=== PATIENT | female | born 1955 | race Caucasian/White ===

== ENCOUNTER 2020-03-03 20:03 | Inpatient (IN) | payer OTHER, SELFPAY ==
[2020-03-03 20:25] VITALS: BP 137/77; PULSE 130; RESP 18; TEMP 37; O2SAT 95; BMI 29.2
--- NOTE | 2020-03-03 20:55 | ECG_ITS ---
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 Measurements Intervals [place] Rate: 143 P: NM: -1 QRS: -13 QRSD: 90 T: 124 QT: 229 QTc: 354 Interpretive Statements ATRIAL FLUTTER/TACHYCARDIA WITH RAPID VENTRICULAR RESPONSE ST DEPRESSION Compared to ECG 10/28/2014 05:28:06 ST (T wave) deviation now present Sinus rhythm no longer present Atrial premature complex(es) no longer present Electronically Signed On 03-04-2020 19:30:02 CDT by Dru James M.D. [id number] jose l
[2020-03-03 21:18] LABS: Basophils # 0.1 10^3/uL (0.0-0.1); Basophils % 0.8 %; Eosinophils # 0.2 10^3/uL (0.0-0.8); Eosinophils % 2.8 %; Hematocrit 42.7 % (37.0-47.0); Hemoglobin 14.6 g/dL (11.5-15.3); Lymphocytes # 3.4 10^3/uL (0.8-4.8); Lymphocytes % 39.5 %; Mean Corpuscular HGB Conc 34.2 g/dL (30.0-36.0); Mean Corpuscular Hemoglobin 30.7 pg (28.0-34.0); Mean Corpuscular Volume 89.9 fL (81-99); Mean Platelet Volume 9.9 fL (7.4-10.4); Monocytes # 0.9 10^3/uL (0.2-0.9); Monocytes % 10.1 %; Neutrophils % 46.6 %; Nucleated Red Blood Cells % 0 %; Platelet Count 269 10^3/cmm (130-400); Red Blood Count 4.75 10^6/uL (4.1-5.3); Red Cell Distribution Width 12.9 % (12.1-15.1); White Blood Count 8.6 10^3/uL (4.0-10.0)
[2020-03-03 21:21] VITALS: BP 124/71; PULSE 116; RESP 18; O2SAT 96
[2020-03-03 21:32] LABS: INR 0.83 (0.8-1.2)
[2020-03-03 21:49] LABS: Troponin(5th) Baseline 8 ng/L (0-10)
[2020-03-03 21:54] LABS: Alanine Aminotransferase 24 U/L (0-33); Albumin Level 4.5 g/dL (3.5-5.2); Alkaline Phosphatase 70 IU/L (35-105); Anion Gap 12.5 (5-19); Aspartate Amino Transferase 22 U/L (0-32); Blood Urea Nitrogen 20 mg/dL (8-23); Calcium 9.8 mg/dL (8.5-10.5); Carbon Dioxide 29 mmol/L (22-29); Chloride 102 mmol/L (98-107); Creatinine Clr Calc Pharmacy 62.0294; Free T4 Free Thyroxine 1.14 ng/dL (0.82-1.77); Globulin 2.1 g/dL (1.3-4.6); Glomerular Filtration Rate 71.8 mL/min (90-130); Glucose 139 mg/dL (65-115); Magnesium 2.3 mg/dL (1.7-2.3); Osmolality Calculated 289 mOsm/kg (285-295); Potassium 3.5 mmol/L (3.5-5.1); Sodium 140 mmol/L (136-145); Thyroid Stimulating Hormone 2.91 uIU/mL (0.27-4.20); Total Bilirubin 0.2 mg/dL (0.15-1.2); Total Protein 6.6 g/dL (6.6-8.7)
[2020-03-03 22:03] VITALS: BP 127/69; PULSE 90; RESP 16; O2SAT 97
--- NOTE | 2020-03-03 22:21 | W.ED.ARRPALP ---
HPI - Arrhythmia/Palpitations General: Chief Complaint: Arrhythmia/Palpitations Stated Complaint: thinks in a fib Time Seen by Provider: 03/03/20 21:12 Source: patient and family Mode of arrival: ambulatory Limitations: no limitations History of Present Illness: HPI narrative: Ms. Bonds is a nice 64-year-old female who comes in complaining of palpitations that started at 5 PM this evening. She has a history of atrial fibrillation but had an ablation in 2014 and has not had problems except for very short runs of palpitations since that time. Patient denies any chest pain but may get a little short of breath when she exerts herself. The reason she comes in tonight or this episode of some palpitations is longer than it is ever been. Patient is unaware of anything makes her symptoms better or worse. She is not on any anticoagulants currently. She otherwise denies any complaints or concerns. Associated symptoms: Deny diaphoresis, nausea, pre-syncope, syncope or vomiting Review of Systems Const: Denies: fever(s), chills, body aches, fatigue, malaise or diaphoresis Eyes: Denies: change in vision, blurry vision, photophobia, eye discomfort, eye discharge or eye redness ENMT: Denies: throat pain, odynophagia, hoarseness, swelling of lips/tongue, ear or mastoid pain, ear discharge, change in hearing or nasal discharge Card: Reports: palpitations; Denies: chest pain, irregular heart rhythm, edema, lightheadedness, syncope, pre-syncope, dyspnea on exertion or orthopnea Resp: Denies: dyspnea, productive cough, non-productive cough, wheezing, hemoptysis or chest congestion GI: Denies: abdominal pain, nausea, vomiting, hematemesis, coffee ground emesis, heartburn, diarrhea, constipation, GI cramping, hematochezia or melena : Denies: flank pain, dysuria, urinary frequency, urinary urgency or hematuria Musc: Denies: neck pain, back pain, extremity pain, extremity swelling, joint pain, joint swelling, joint redness, joint warmth or joint stiffness Skin/Breast: Denies: rash, pruritus, erythema or skin tenderness Neuro: Denies: headache(s), numbness in extremities, weakness in extremities, sensory changes, lack of coordination, difficulty walking, dizziness, vertigo, confusion, Slurred speech present or seizure-like activity Deion/Lymph: Denies: easy bruising, easy bleeding, petechiae, purpura or enlarged lymph nodes All/Imm: Denies: urticaria, throat swelling, tongue swelling, facial swelling or acute wheezing PFSH ED PFSH: Medical History Atrial fibrillation Diverticulitis Dyslipidemia Dysphagia GERD (gastroesophageal reflux disease) Hemorrhoids HTN (hypertension) Surgical History History of salpingo-oophorectomy S/P hysterectomy Status post catheter ablation of atrial fibrillation 2014 Family History Father CAD (coronary artery disease) S/P CABG (coronary artery bypass graft) Sister Cancer Other Diabetes Stroke Social History (Updated 03/03/20 @ 23:46 by Dyan Marie MD) Smoking and tobacco status: former smoker Alcohol intake: current Alcohol intake frequency: holidays/special occasions only Alcohol type: wine Household members: spouse Marital status: Physical Exam Const: COMMON NORMALS: no acute distress, patient oriented x3, no limitations, healthy appearing and well nourished GENERAL APPEARANCE: cooperative, well kempt and well developed HENMT: COMMON NORMALS: normocephalic, atraumatic, external ears normal, EAC's normal and Normal external nose present HEAD & SCALP: normal to inspection, normocephalic and atraumatic FACE & SINUS: normal facial exam and face symmetric NOSE: Normal external nose present and Normal nares present EXTERNAL EAR: Yes external ears normal EXTERNAL AUDITORY CANAL: EAC's normal MOUTH: Normal oral and palatal mucosa present, lip normal and tongue normal Eye: COMMON NORMALS: Equal, round and reactive pupils present and conjunctivae normal GENERAL EYE: appearance normal, both eyes and all related structures ALIGNMENT: Yes alignment normal PERIORBITAL: periorbital findings normal EYELID: eyelids normal CONJUNCTIVA: Yes conjunctivae normal SCLERA: sclerae normal PUPIL: Yes Equal, round and reactive pupils present Neck/C-Spine: COMMON NORMALS: full ROM, no lymphadenopathy, supple, no meningeal signs and no JVD GENERAL: Yes normal visual inspection and Yes trachea midline Chest: COMMONS NORMALS: normal inspection of the chest and normal palpation of entire chest wall Resp: COMMON NORMALS: normal respiratory effort, No retractions, No use of accessory muscles and clear to auscultation bilaterally EFFORT & INSPECTION: Yes able to speak in complete sentences and Yes symmetric chest movement AUSCULTATION: clear to auscultation bilaterally, no crackles, no rales, no rhonchi and no wheezes Cardio: COMMON NORMALS: no JVD, S1 normal heart sound present and S2 normal heart sound present RATE: tachycardic RHYTHM: abnormal rhythm irregularly irregular HEART SOUNDS: S1 normal heart sound present, S2 normal heart sound present, no click, no gallops, no murmurs, no rubs and abnormal split S2 GI: COMMON NORMALS: Soft to palpation and No hepatosplenomegaly present PALPATION: Yes Soft to palpation, No Tenderness to palpation present (GI), No Guarding due to palpation present (GI), No Rigid due to palpation, Yes No hepatosplenomegaly present, No Hernia present, No Palpable mass present and No Pulsatile mass present : COMMON NORMALS: Yes no CVA tenderness BLADDER/KIDNEY EXAM: Yes no CVA tenderness EXTERNAL FEMALE EXAM: No Hernia present Back/Pelvis: COMMON NORMALS: no CVA tenderness, thoracic and lumbar spine normal to inspection, no thoracic nor lumbar tenderness and thoraco-lumbar ROM normal Extremity: COMMON NORMALS: normal to inspection, full ROM, capillary refill normal, no joint enlargement, no clubbing, cyanosis or edema and no calf tenderness Neuro: COMMON NORMALS: patient oriented x3, CN's II-XII intact bilaterally, moves all extremities, no focal motor deficits and no sensory deficits noted MENINGEAL SIGNS: Yes no meningeal signs SPEECH: speech normal Psych: COMMON NORMALS: mental status grossly normal, Normal thought process present, cooperative, normal affect, speech normal and activity/motor behavior normal APPEARANCE: Yes well kempt SPEECH: Yes normal speech THOUGHT PROCESS: Normal thought process present Skin: COMMON NORMALS: no rashes or lesions noted, turgor normal, no jaundice, no petechiae and no mottling GENERAL SKIN EXAM: no rashes or lesions noted and turgor normal Course Vital Signs: Vital signs: Vital Signs Temperature 98.3 F 03/04/20 11:00 Pulse Rate 69 03/04/20 11:00 Respiratory Rate 15 03/04/20 11:00 Blood Pressure 131/70 03/04/20 11:00 Pulse Oximetry 96 03/04/20 11:00 MDM - Arrhythmia/Palpitations MDM Narrative: Medical decision making narrative: Patient's rate is been controlled on Cardizem. I have endorsed the case to Dr. Marie, he agrees to admit. Patient's cardiac enzymes are unremarkable and electrolytes are normal. Further work-up I believe can be performed by the hospitalist service and cardiology. They may want to consider cardioversion if the patient does not spontaneously cardiovert. Lab Data: Attestation: I reviewed the patient's lab results. Labs: Lab Results 03/03/20 03/03/20 03/03/20 Range/Units 21:08 21:08 21:08 WBC 8.6 (4.0-10.0) 10^3/ uL RBC 4.75 (4.1-5.3) 10^6/u L Hgb 14.6 (11.5-15.3) g/dL Hct 42.7 (37.0-47.0) % MCV 89.9 (81-99) fL MCH 30.7 (28.0-34.0) pg MCHC 34.2 (30.0-36.0) g/dL RDW 12.9 (12.1-15.1) % Plt Count 269 (130-400) 10^3/c mm MPV 9.9 (7.4-10.4) fL Neut % (Auto) 46.6 % Lymph % (Auto) 39.5 % [place] % (Auto) 10.1 % Eos % (Auto) 2.8 % Baso % (Auto) 0.8 % Neut # (Auto) 4.00 (1.8-7.7) 10^3/u L Lymph # (Auto) 3.4 (0.8-4.8) 10^3/u L [place] # (Auto) 0.9 (0.2-0.9) 10^3/u L Eos # (Auto) 0.2 (0.0-0.8) 10^3/u L Baso # (Auto) 0.1 (0.0-0.1) 10^3/u L Nucleated RBC % (a uto) 0 % Nucleated RBCs # 0.0 /100WBC PT (12.1-14.9) SECO NDS INR (0.8-1.2) D-Dimer (0-0.59) ug/mIFE U Sodium 140 (136-145) mmol/L Potassium 3.5 (3.5-5.1) mmol/L Chloride 102 (98-107) mmol/L Carbon Dioxide 29 (22-29) mmol/L Anion Gap 12.5 (5-19) BUN 20 (8-23) mg/dL Creatinine 0.8 (0.5-0.9) mg/dL GFR Calculation 71.8 L (90-130) mL/min Glucose 139 H (65-115) mg/dL Calculated Osmolal ity 289 (285-295) mOsm/k g Calcium 9.8 (8.5-10.5) mg/dL Magnesium 2.3 (1.7-2.3) mg/dL Total Bilirubin 0.2 (0.15-1.2) mg/dL AST 22 (0-32) U/L ALT 24 (0-33) U/L Alkaline Phosphata se 70 (35-105) IU/L Troponin T Baselin e 8 (0-10) ng/L Total Protein 6.6 (6.6-8.7) g/dL Albumin 4.5 (3.5-5.2) g/dL Globulin 2.1 (1.3-4.6) g/dL TSH 2.91 (0.27-4.20) uIU/ mL Free T4 1.14 (0.82-1.77) ng/d L 03/03/20 03/03/20 Range/Units 21:08 21:08 WBC (4.0-10.0) 10^3/ uL RBC (4.1-5.3) 10^6/u L Hgb (11.5-15.3) g/dL Hct (37.0-47.0) % MCV (81-99) fL MCH (28.0-34.0) pg MCHC (30.0-36.0) g/dL RDW (12.1-15.1) % Plt Count (130-400) 10^3/c mm MPV (7.4-10.4) fL Neut % (Auto) % Lymph % (Auto) % [place] % (Auto) % Eos % (Auto) % Baso % (Auto) % Neut # (Auto) (1.8-7.7) 10^3/u L Lymph # (Auto) (0.8-4.8) 10^3/u L [place] # (Auto) (0.2-0.9) 10^3/u L Eos # (Auto) (0.0-0.8) 10^3/u L Baso # (Auto) (0.0-0.1) 10^3/u L Nucleated RBC % (a uto) % Nucleated RBCs # /100WBC PT 11.70 L (12.1-14.9) SECO NDS INR 0.83 (0.8-1.2) D-Dimer 0.55 (0-0.59) ug/mIFE U Sodium (136-145) mmol/L Potassium (3.5-5.1) mmol/L Chloride (98-107) mmol/L Carbon Dioxide (22-29) mmol/L Anion Gap (5-19) BUN (8-23) mg/dL Creatinine (0.5-0.9) mg/dL GFR Calculation (90-130) mL/min Glucose (65-115) mg/dL Calculated Osmolal ity (285-295) mOsm/k g Calcium (8.5-10.5) mg/dL Magnesium (1.7-2.3) mg/dL Total Bilirubin (0.15-1.2) mg/dL AST (0-32) U/L ALT (0-33) U/L Alkaline Phosphata se (35-105) IU/L Troponin T Baselin e (0-10) ng/L Total Protein (6.6-8.7) g/dL Albumin (3.5-5.2) g/dL Globulin (1.3-4.6) g/dL TSH (0.27-4.20) uIU/ mL Free T4 (0.82-1.77) ng/d L EKG Data^: EKG 1: Attestation: I personally reviewed and interpreted this EKG as follows: EKG interpretation date: 03/03/20 EKG interpretation time: 20:35 Interpretation: Atrial flutter with ventricular 243 beats a minute, nonspecific ST and T wave changes. Significant baseline artifact. EKG 2: Attestation: I personally reviewed and interpreted this EKG as follows: EKG interpretation date: 03/03/20 EKG interpretation time: 23:06 Interpretation: Atrial fibrillation with a rate of 70, left axis deviation, no acute ST-T wave changes. Discharge Plan Discharge Patient Disposition: Admitted As Inpatient Admit Provider: Dyan Marie Clinical Impression: Atrial fibrillation with RVR Condition: Stable Interventions: ED Discharge Assessment Last Done: 03/03/20 22:51 ED Charges Last Done: 03/03/20 22:51 Discharge Date/Time: 03/04/20 02:07 Coding Level of Care Code ED Warehouse Clerk for Chg Joe
--- NOTE | 2020-03-03 22:25 | P.HP_ITS ---
Providers/Chief Complaint Primary Care Provider: Demond Vergara MD Chief Complaint: thinks in a fib History of Present Illness Teena Brenner is a 64 year old female who carries history of chronic atrial fibrillation status post ablation and 2015 at [place] currently not anticoagulated came in with chief complaint of palpitations. Patient stating that her symptoms started around 5 PM when she started experiencing palpitations. Patient is endorsing that since her ablation in 2014 she has been experiencing palpitations on and off which would last for few seconds. At this time after 5 PM she was experiencing consistent chest discomfort which she is describing as palpitations hence decided to come to the ED for further eval uation. Her protozoology teacher did not put her on anticoagulation or any AV sun blocking agent after ablation, she did not experience any chest pain shortness of breath orthopnea PND since then. She is very active for age, does not smoke, drinks beer occasionally. With her palpitations she did not experience any chest pain, shortness of breath, confusion. She is denying fever, recent sinus infection, hypo-/hyperthyroidism, leg swelling. Diagnostics in the ER revealed A. fib RVR, at the time of my evaluation she was on Cardizem drip running at 5mg/hr, TSH normal, low risk for PE No active chest pain, heart rate was fluctuating between 70-80, irregular rhythm, Review of Systems Const: Denies: fever(s) or chills Eyes: Denies: change in vision ENMT: Denies: throat pain Card: Reports: palpitations and irregular heart rhythm; Denies: chest pain, syncope, pre-syncope or dyspnea on exertion Resp: Denies: dyspnea GI: Denies: abdominal pain : Denies: flank pain Musc: Denies: neck pain Skin/Breast: Denies: rash Neuro: Denies: headache(s) Psych: Denies: anxiety Endo: Denies: polyuria Deion/Lymph: Denies: easy bruising All/Imm: Denies: urticaria Medications/Allergies Home Medications Medication Instructions Recorded Confirmed Last Taken Type aspirin 81 mg tablet,delayed 162 mg PO DAILY tab 12/08/19 02/04/20 Unknown History release garlic 1,000 mg capsule 1,000 mg PO DAILY 12/08/19 02/04/20 Unknown History magnesium oxide 400 mg PO DAILY 12/08/19 02/04/20 Unknown History telmisartan 40 mg tablet 40 mg PO DAILY 90 Days #90 tab 01/12/20 02/04/20 Unknown Rx chlorthalidone 25 mg tablet 12.5 mg PO DAILY tab 02/04/20 Unknown History multivitamin 1 tab PO DAILY 02/04/20 02/04/20 Unknown History CoQ-10 DAILY 03/03/20 03/03/20 History turmeric DAILY 03/03/20 03/03/20 History Allergies Allergy/AdvReac Type Severity Reaction Status Date / Time No Known Allergies Allergy Unverified 09/06/19 14:15 PFSH Acute PFSH: Medical History Atrial fibrillation Diverticulitis Dyslipidemia Dysphagia GERD (gastroesophageal reflux disease) Hemorrhoids HTN (hypertension) Surgical History History of salpingo-oophorectomy S/P hysterectomy Status post catheter ablation of atrial fibrillation 2014 Family History Father CAD (coronary artery disease) S/P CABG (coronary artery bypass graft) Sister Cancer Other Diabetes Stroke Social History (Updated 03/03/20 @ 23:46 by Dyan Marie MD) Smoking and tobacco status: former smoker Alcohol intake: current Alcohol intake frequency: holidays/special occasions only Alcohol type: wine Household members: spouse Marital status: Vitals/I&O/Wt Last Vital Signs Temp 98.6 F 03/03/20 20:25 Pulse 90 03/03/20 22:03 Resp 16 03/03/20 22:03 BP 127/69 03/03/20 22:03 Pulse Ox 97 03/03/20 22:03 Weight last 48 hrs Weight 70.307 kg Physical Exam Narrative: EXAM NARRATIVE: Very pleasant middle-age female lying comfortably in her bed Heart rate fluctuating between 70-80 irregular rhythm No active chest pain shortness of breath No confusion EOMI, PERRLA No neurological deficit Appropriate mood and affect No skin rash No lower extremity edema gangrene ulcer Irregular S1-S2 no murmur appreciated Abdomen soft nontender nondistended bowel sound present Lungs are clear to auscultation Data : 03/03/20 21:08 03/03/20 21:08 A&P Assessment and plan (1) Atrial fibrillation with RVR: Status: Acute (2) HTN (hypertension): Status: Acute Additional A&P Information Paroxysmal A. fib with acute RVR Matt Vasc 3 for age, sex and hypertension Patient is stating that since ablation in 2014 he had stayed in normal sinus rhythm, she was not taking any AV sun blocking agent or any anticoagulation I would start her on Eliquis 5 mg twice a day, counseled on benefits of using Eliquis and complications such as GI bleed, patient's concerns were addressed, discontinue aspirin, no history of coronary disease or peripheral vascular disease or TIA Switch Cardizem drip to oral Cardizem p.o. every 6 hours TSH normal No risk for PE, will check d-dimer, no sign of sepsis Echo in the morning Hypertension: Patient takes chlorthalidone and telmisartan Judicious use of medication because of recent Cardizem drip usage currently blood pressures fluctuating between 140s to 150smmhg Full code DVT prophylaxis not indicated because of current use of Eliquis Cardiac diet Patient has been following up with Dr. Murray & now seeing Dr. Flynn Attestations Medical Necessity Statement*: Anticipating discharge in less than 48 hours currently need rate control with IV medications for A. fib RVR, need anticoagulation for high risk of stroke Time Spent in Patient Care: (>than 50% of time spent in counselling and/or direct pt care on unit) . 50mins Coding Level of Care Code Acute Long Distance Operator for Chg Fwd Diagnoses Atrial fibrillation with RVR I48.91 HTN (hypertension) I10
--- NOTE | 2020-03-03 22:52 | PC.NURSE ---
Per hospitalist at bedside 2nd EKG not needed
--- NOTE | 2020-03-03 22:55 | ECG_ITS ---
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 Measurements Intervals [place] Rate: 70 P: MO: -1 QRS: -15 QRSD: 97 T: -7 QT: 399 QTc: 432 Interpretive Statements ATRIAL FIBRILLATION MINIMAL ST DEPRESSION [0.025+ mV ST DEPRESSION] ABNORMAL RHYTHM ECG Compared to ECG 10/28/2014 05:28:06 ST (T wave) deviation now present Sinus rhythm no longer present Atrial premature complex(es) no longer present Electronically Signed On 03-05-2020 19:55:51 CDT by Dru James M.D. [id number]
--- NOTE | 2020-03-03 23:10 | PC.NURSE ---
EKG done at 2300 and shown to ER doctor
--- NOTE | 2020-03-03 23:20 | PC.NURSE ---
ADMISSION NOTE Pt arrived via wheelchair from ED. Pt CASTILLO x 4. VSS. NAD. Denies pain. Pt not currently on cardizem gtt. hall monitor applied. Sinus rhythm noted. Oriented patient to room and call light.
[2020-03-03 23:25] VITALS: BP 156/83; PULSE 71; RESP 20; TEMP 36.7; O2SAT 97
[2020-03-03] MEDS: apixaban 5 mg Tablet PO (23:59)
[2020-03-04 00:04] LABS: D Dimer 0.55 ug/mIFEU (0-0.59)
[2020-03-04 03:26] VITALS: BP 108/60; PULSE 66; RESP 16; TEMP 36.6; O2SAT 99
[2020-03-04 06:06] LABS: Anion Gap 11.6 (5-19); Blood Urea Nitrogen 19 mg/dL (8-23); Calcium 8.6 mg/dL (8.5-10.5); Carbon Dioxide 30 mmol/L (22-29); Chloride 105 mmol/L (98-107); Creatinine Clr Calc Pharmacy 62.0294; Glomerular Filtration Rate 83.7 mL/min (90-130); Glucose 109 mg/dL (65-115); Osmolality Calculated 293 mOsm/kg (285-295); Potassium 3.6 mmol/L (3.5-5.1); Sodium 143 mmol/L (136-145)
[2020-03-04] MEDS: dilTIAZem 30 mg Tablet PO ×2 (06:11)
--- NOTE | 2020-03-04 06:42 | PC.NURSE ---
Pt rested well throughout the night. Remained in sinus rhythm. Denies pain or any other needs.
[2020-03-04 07:00] VITALS: BP 119/68; PULSE 66; RESP 17; TEMP 36.6; O2SAT 97
[2020-03-04] MEDS: atorvastatin 40 mg Tablet 20 MG PO (09:27)
[2020-03-04 09:28] VITALS: BP 119/68
[2020-03-04] MEDS: apixaban 5 mg Tablet PO (09:28)
[2020-03-04] MEDS: magnesium oxide 400 mg tablet PO (09:28)
[2020-03-04] MEDS: losartan 50 mg Tablet 100 MG PO (09:28)
[2020-03-04 11:00] VITALS: BP 131/70; PULSE 69; RESP 15; TEMP 36.8; O2SAT 96
--- NOTE | 2020-03-04 11:21 | PC.CHAP ---
Pastoral Care Encounter/Spiritual Assessment Type of Contact [] Declined rug cleaner hand visit [] Patient/Family/Request visit [] Outpatient visit [] Follow-up visit [] Physician referral [] Code/Alert [X] Routine visit [] Staff referral [] Actively dying [] Patient sleeping [] Family support [] [] Out of room [] Palliative care [] [] Receiving care in room [] Pre-surgical visit [] Trauma [] Long length of stay [] ICU visit [] Other: Relational/Emotional Strength [X] Patient feels connected with others/family/visitors/staff [] Distress [] Loneliness/isolation [] Abandonment Spirituality of Patient [X] Person of Tessie [X] Attends Buddhist of their Tessie [X] Believes in Prayer [X] Reads Bible or Jehovah'S Witness materials [] There are Spiritual issues to be addressed Erp Developer Interventions [X] Prayer [X] Active listening [X] Non-anxious presence [] Spiritual/emotional support [] Crisis/trauma care [] Spiritual counseling [] Bereavement support [] Provided bereavement packet [X] Provided Bible/devotional materials [] Provided toy/stuffed animal, coloring book to patient or family member [] Provided Communion [] Anointing/[place] [] Salvation [X] Completed spiritual assessment [] Other: Impact on Illness or Injury [] Angry [] Fearful [] Anxious [] Often cries [] Exhaustion [] Unable to work [] Unable to attend mu-ism [] Unable to walk/stand [] Unable to read [] Unable to drive [] Unable to eat/drink [] Unable to sleep [] Unable to be with family [] Patient intubated [] Other: Summary: Pt was in good spirits and feeling well; awaiting visit by physician so that she can go home. Provided prayer and A Daily Bread. Time spent with patient: 20 mins
--- NOTE | 2020-03-04 11:54 | P.DS_ITS ---
Discharge Providers Date of Admission: 03/03/20 22:36 Date of Discharge: March 04, 2020 Attending Provider at Admission: Dyan Marie MD Attending Provider at Discharge: Doroteo Levin MD Primary Care Provider: Demond Vergara MD Diagnoses at Discharge Discharge Diagnosis (1) Atrial fibrillation with RVR: Status: Acute (2) HTN (hypertension): Status: Acute (3) GERD (gastroesophageal reflux disease): Status: Acute Reason for Visit Reason for Visit: thinks in a fib Hospital Course Discharge Summary: Patient presented with atrial fibrillation and rapid ventricular response. She reports that she has been doing well for the last 5 years ever since she had ablation. Reports that she always gets symptomatic whenever she goes into atrial fibrillation and she can recognize. Reports that she has been occasionally having episodes of heart palpitations off-and-on which usually were short lasting in the last 5 years. Anticoagulation was discussed with patient and she wants to hold off on that for now as she thinks that she will unlikely get another episode again anytime soon. 1 of the concerns patient had is right-sided epistaxis which she had for a very long period of time due to deviated septum. She understands risks and benefits of anticoagulation for stroke prevention. She will immediately discuss with her primary care physician or Dr. Flynn in case if she develops atrial fibrillation again. She reports significant reflux symptoms since her ablation procedure. Reports that she takes Tums quite often therefore she will be started on omeprazole. She will be started on long-acting Cardizem 120 mg daily and if heart rate remains stable we will dismiss patient home later this afternoon. Patient was told to keep blood pressure and heart rate log 3 times daily to present to primary care physician or Dr. Flynn for medication adjustment. She is currently during my evaluation is in normal sinus rhythm at the rate 69. She denies any shortness of breath or chest pain. She denied having any chest pain but does report chronic reflux symptoms and epigastric area discomfort for many years off and on. Physical Exam Const: COMMON NORMALS: no acute distress and patient oriented x3 Resp: COMMON NORMALS: normal respiratory effort and clear to auscultation bilaterally AUSCULTATION: clear to auscultation bilaterally Cardio: COMMON NORMALS: regular rate, regular rhythm and S2 normal heart sound present RATE: regular rate RHYTHM: regular rhythm HEART SOUNDS: S2 normal heart sound present OTHER: No lower extremity edema GI: COMMON NORMALS: Normal to inspection, nondistended, normoactive bowel sounds present, Soft to palpation and non-tender PALPATION: Yes Soft to palpation Neuro: COMMON NORMALS: patient oriented x3 and no focal motor deficits Discharge Data Data Completed and Pending: Pending at discharge Category Date Time Status CV echo complete* [id number] Routine Ultrasound 03/04/20 23:42 Taken Labs from last 24 hours 03/04/20 03/03/20 03/03/20 04:52 21:08 21:08 WBC RBC Hgb Hct MCV MCH MCHC RDW Plt Count MPV Neut % (Auto) Lymph % (Auto) [place] % (Auto) Eos % (Auto) Baso % (Auto) Neut # (Auto) Lymph # (Auto) [place] # (Auto) Eos # (Auto) Baso # (Auto) Nucleated RBC % (a uto) Nucleated RBCs # PT 11.70 L INR 0.83 D-Dimer 0.55 Sodium 143 Potassium 3.6 Chloride 105 Carbon Dioxide 30 H Anion Gap 11.6 BUN 19 Creatinine 0.7 GFR Calculation 83.7 L Glucose 109 Calculated Osmolal ity 293 Calcium 8.6 Magnesium Total Bilirubin AST ALT Alkaline Phosphata se Troponin T Baselin e Total Protein Albumin Globulin TSH Free T4 03/03/20 03/03/20 03/03/20 21:08 21:08 21:08 WBC 8.6 RBC 4.75 Hgb 14.6 Hct 42.7 MCV 89.9 MCH 30.7 MCHC 34.2 RDW 12.9 Plt Count 269 MPV 9.9 Neut % (Auto) 46.6 Lymph % (Auto) 39.5 [place] % (Auto) 10.1 Eos % (Auto) 2.8 Baso % (Auto) 0.8 Neut # (Auto) 4.00 Lymph # (Auto) 3.4 [place] # (Auto) 0.9 Eos # (Auto) 0.2 Baso # (Auto) 0.1 Nucleated RBC % (a uto) 0 Nucleated RBCs # 0.0 PT INR D-Dimer Sodium 140 Potassium 3.5 Chloride 102 Carbon Dioxide 29 Anion Gap 12.5 BUN 20 Creatinine 0.8 GFR Calculation 71.8 L Glucose 139 H Calculated Osmolal ity 289 Calcium 9.8 Magnesium 2.3 Total Bilirubin 0.2 AST 22 ALT 24 Alkaline Phosphata se 70 Troponin T Baselin e 8 Total Protein 6.6 Albumin 4.5 Globulin 2.1 TSH 2.91 Free T4 1.14 Vitals: Last Vital Signs Temp 98.3 F 03/04/20 11:00 Pulse 69 03/04/20 11:00 Resp 15 03/04/20 11:00 BP 131/70 03/04/20 11:00 Pulse Ox 96 03/04/20 11:00 Discharge Plan Discharge Patient Disposition: Home Condition: Stable Prescriptions: New diltiazem HCl [Cardizem CD] 120 mg capsule,extended release 24hr 120 mg PO DAILY Qty: 30 RF: 0 omeprazole 20 mg capsule,delayed release(DR/EC) 20 mg PO DAILY Qty: 30 RF: 0 Continued multivitamin Tablet 1 tab PO DAILY RF: 0 magnesium oxide 400 mg magnesium tablet 250 mg PO DAILY RF: 0 aspirin [Aspir-81] 81 mg tablet,delayed release (DR/EC) 81 mg PO DAILY RF: 0 garlic 1,000 mg capsule 1,000 mg PO DAILY RF: 0 telmisartan 40 mg tablet 40 mg PO DAILY 90 Days Qty: 90 RF: 3 CoQ-10 1 tab PO DAILY RF: 0 turmeric 1 tab PO DAILY RF: 0 Discontinued chlorthalidone 25 mg tablet 6.25 mg PO DAILY RF: 0 Eliquis See Rx Instructions .ROUTE .COMPLEX RF: 0 Discharge Orders: Discharge Order (Routine); Ordered 03/04/20 Ordered By: Doroteo Levin Referrals: Demond Vergara MD [Primary Care Provider] - 4-7 days Daphney Flynn MD [Physician] - 4-7 days Discharge Diet: Advance as tolerated Discharge Activity: Increase activity as tolerated Activity Restrictions/Additional Instructions: Please call your doctor or present to emergency department if your condition worsens or you develop diarrhea, lightheadedness, fatigue or see blood in your stool or black stool. Please keep blood pressure and heart rate log 3 times daily to present to [facility] physician next visit for medication adjustment. Please discuss with Dr. Flynn or your primary care physician to consider initiating Eliquis if you develop atrial fibrillation again as we have discussed with close monitoring of your epistaxis. Please discuss with your doctor to check lipid profile as it was not checked during this hospitalization. You may need to restart your anticholesterol medication if necessary. Discharge Attestations Time Spent in Discharge Care*: greater than 30 min Quality Metrics Clinical Quality Measures During this hospital stay, did patient experience: None Coding Level of Care Code Acute Lube Man for Chg Fwd Diagnoses Atrial fibrillation with RVR I48.91 HTN (hypertension) I10 GERD (gastroesophageal reflux disease) K21.9
[2020-03-04] MEDS: dilTIAZem ER (24HR) 120 mg Capsule PO (12:46)
[2020-03-04 13:11] VITALS: BP 131/70; PULSE 69; RESP 15; TEMP 36.8; O2SAT 96
--- NOTE | 2020-03-04 23:42 | USCV_ITS ---
Teena Brenner Age: 64 Gender: F : 1955 Exam Date: 03/04/2020 06:40 Ordering Phys: Dyan Marie MD Technologist: Tanesha Senior Exam Location: [facility] [place] Indication: Chronic atrial fibrillation BP: 108 / 60 HR: 58 Rhythm: Sinus Technical Quality: Adequate MEASUREMENTS (Male / Female) Normal Values 2D ECHO LV Diastolic Diameter PLAX 4.0 cm 4.2 - 5.9 / 3.9 - 5.3 cm LV Systolic Diameter PLAX 2.6 cm LV Chamber Size 3.7 cm IVS Diastolic Thickness 1.1 cm 0.6 - 1.0 / 0.6 - 0.9 cm IVS Systolic Thickness 1.5 cm LVPW Diastolic Thickness 0.9 cm 0.6 - 1.0 / 0.6 - 0.9 cm LVPW Systolic Thickness 1.4 cm RV Chamber Size 3.0 cm LVOT Diameter 1.8 cm LV Ejection Fraction 2D Teich 65.9 % LV Ejection Fraction MOD 2C 52.5 % LV Ejection Fraction 2C AL 56.4 % LA Diameter 3.3 cm LA Width 3.0 cm LA Height 4.6 cm RA Width 2.8 cm RA Height 4.7 cm Aorta at Sinotubular Diameter 2.7 cm M-MODE LV Diastolic Diameter MM 4.1 cm 4.2 - 5.9 / 3.9 - 5.3 cm LV Systolic Diameter MM 2.6 cm LV Ejection Fraction MM Teich 65.0 % IVS Diastolic Thickness MM 1.0 cm 0.6 - 1.0 / 0.6 - 0.9 cm IVS Systolic Thickness MM 1.2 cm LVPW Diastolic Thickness MM 1.2 cm 0.6 - 1.0 / 0.6 - 0.9 cm LVPW Systolic Thickness MM 1.6 cm RV Diastolic Diameter MM 2.1 cm Aortic Annulus Diameter 3.2 cm LA Ao Ratio MM 1.0 MV E Point Septal Separation 0.3 cm DOPPLER AV Peak Velocity 109.0 cm/s LVOT Peak Velocity 84.0 cm/s AV Area Cont Eq vti 1.9 cm squared AV Area Cont Eq pk 2.1 cm squared MV Area PHT 4.3 cm squared Mitral E to A Ratio 1.4 MV E' Velocity 9.0 cm/s Mitral E to MV E' Ratio 10.1 Mitral E to LV E' Lateral Ratio 10.2 Mitral E to LV E' Septal Ratio 10.0 TR Peak Velocity 212.0 cm/s TR Peak Gradient 17.9 mmHg TV Peak E Velocity 45.0 cm/s Right Atrial Pressure 3.0 mmHg Pulmonary Artery Systolic Pressu 21.0 mmHg PV Peak Velocity 60.0 cm/s RV Acceleration Time 0.1 s RV Ejection Time 0.3 s RV AcT/ET 0.4 FINDINGS Left Ventricle Normal left ventricular size, systolic function and wall thickness, with no regional wall motion abnormalities. LV EF is 55 to 60%. Normal left ventricular wall thickness. Normal diastolic filling pattern. Right Ventricle The right ventricle is normal in size and function. Right Atrium The right atrium is normal in size. Left Atrium The left atrium is normal in size. Mitral Valve Structurally normal mitral valve without significant stenosis or prolapse. There is no mitral regurgitation. Aortic Valve Structurally normal aortic valve without significant sclerosis or stenosis. There is no aortic regurgitation. Tricuspid Valve Structurally normal tricuspid valve without significant stenosis or regurgitation. Insufficient TR jet to measure RVSP. RA pressure is 0 to 5 mmHg. Pulmonic Valve Structurally normal pulmonic valve without significant stenosis. There is trace pulmonic regurgitation. Pericardium Normal pericardium without effusion. Aorta Normal ascending aorta dimension. CONCLUSIONS Normal LV systolic function with EF of 55 to 60%. Diastolic function is normal Dru James MD (Electronically Signed) Final Date: 04 March 2020 12:28 S
== END 2020-03-04 13:42 | disposition home or self-care (01) | DRG 310 ==
LOC: ER 21:12 → CSU 22:46
PROVIDERS: Emergency Medicine; Nurse Practitioner Family; Admitting Provider Internal Medicine; PCP Family Medicine; Visit Provider Internal Medicine
DX: I48.0 Paroxysmal atrial fibrillation (principal); E78.5 Hyperlipidemia, unspecified; K21.9 Gastro-esophageal reflux disease without esophagitis; I10 Essential (primary) hypertension; Z87.891 Personal history of nicotine dependence; Z79.82 Long term (current) use of aspirin
CPT/HCPCS: 12345; 36415; 80048; 80053; 83735; 84439; 84443; 84484; 85025; 85378; 85610; 93005; 93306; 96375; 99283; J3490

== ENCOUNTER → 2020-05-12 10:42 | Outpatient (BNVA) | payer OTHER, SELFPAY | PROVIDERS: PCP Family Medicine; Visit Provider Internal Medicine Cardiovascular Disease | DX: E78.5 Hyperlipidemia, unspecified (principal); I48.91 Unspecified atrial fibrillation | CPT/HCPCS: 80053; 80061; 83721; 84443 ==

== ENCOUNTER 2021-01-05 09:48 | Outpatient (CLI) | payer OTHER, SELFPAY ==
--- NOTE | 2021-01-05 09:57 | MM_ITS ---
WS: [id number] BILATERAL DIGITAL SCREENING MAMMOGRAPHY WITH CAD CLINICAL INFORMATION: SCREENING HISTORY: Screening mammogram. No current complaints. COMPARISON: TECHNIQUE: Bilateral CC and MLO views. FINDINGS: The breasts are composed of heterogeneous fibroglandular density tissue, which can limit the detectio n of small underlying mass lesions. Punctate and vascular calcifications. Lucent centered calcificati ons. No suspicious mass, asymmetry, calcifications, or architectural distortion. No evidence of malig silas. MM/[id number] IMPRESSION: BI-RADS: 2-Benign FOLLOW UP: 1 Year Follow-up Recommend return to annual screening mammography.
== END 2021-01-05 09:49 | disposition home or self-care (01) ==
LOC: RADSHAW 09:52
PROVIDERS: PCP Family Medicine; Visit Provider Family Medicine
DX: Z12.31 Encounter for screening mammogram for malignant neoplasm of breast (principal)
CPT/HCPCS: 77067

== ENCOUNTER → 2021-05-23 15:23 | Outpatient (BNVA) | payer OTHER, SELFPAY | PROVIDERS: PCP Family Medicine; Visit Provider Podiatrist Foot & Ankle Surgery | DX: M79.672 Pain in left foot (principal) | CPT/HCPCS: 73630 ==

== ENCOUNTER 2021-10-31 13:27 | Outpatient (CLI) | payer OTHER, SELFPAY ==
--- NOTE | 2021-10-31 13:36 | XR_ITS ---
WS: [id number] SCREENING DEXA SCAN [employer] CLINICAL INFORMATION: POST MENOPAUSAL COMPARISON: None. FINDINGS: The L1-L4 bone mineral density measures 0.875 g/cm2. This corresponds to a T score score of -2.5 and Z score of -1.2. Left femoral neck bone mineral density measures 0.820 g/cm2. This corresponds to a T score of -1.5 an d Z score of -0.3. Right femoral neck bone mineral density measures 0.820 g/cm2. This corresponds to a T score -1.5of an d Z score of -0.3. Mean femoral neck bone mineral density measures 0.820 g/cm2. This corresponds to a T score of -1.5 an d Z score of -0.3. XR/XR DEXA axial skeleton* [id number] IMPRESSION: Osteoporosis lumbar spine at the lower end of the range. Osteopenia femoral nec ks Patient's FRAX calculated 10 year probability for major osteoporotic fracture i s 13.1 % and osteoporotic hip fracture is 2.8%.
== END 2021-10-31 13:28 | disposition home or self-care (01) ==
LOC: RAD 13:30
PROVIDERS: PCP Family Medicine; Visit Provider Physician Assistant
DX: Z78.0 Asymptomatic menopausal state (principal); M81.0 Age-related osteoporosis without current pathological fracture
CPT/HCPCS: 77080

== ENCOUNTER 2022-01-21 10:25 | Outpatient (CLI) | payer OTHER, SELFPAY ==
--- NOTE | 2022-01-21 10:36 | MM_ITS ---
WS: [id number] BILATERAL SCREENING DIGITAL BREAST TOMOSYNTHESIS MAMMOGRAM WITH CAD HISTORY: SCREENING COMPARISON: 01/05/2021 and 05/10/2019 Bilateral CC and MLO views with tomosynthesis and synthetic mammography submitted. Computer aided det ection analyzed. Breast composition: There are scattered areas of fibroglandular density. No suspicious masses, microc alcifications or architectural distortion. Benign calcification RIGHT breast. MM/[id number] IMPRESSION: BI-RADS: 2-Benign FOLLOW UP: 1 Year Follow-up
== END 2022-01-21 10:26 | disposition home or self-care (01) ==
LOC: RAD 10:26
PROVIDERS: PCP Family Medicine; Visit Provider Family Medicine
DX: Z12.31 Encounter for screening mammogram for malignant neoplasm of breast (principal)
CPT/HCPCS: 77063; 77067

== ENCOUNTER 2022-02-07 11:35 | Outpatient (CLI) | payer OTHER, SELFPAY ==
--- NOTE | 2022-02-07 12:00 | USCV_ITS ---
Teena Brenner Age: 66 Gender: F : 1955 Exam Date: 02/07/2022 11:54 Ordering Phys: Daphney Flynn MD ([email or web address]) Technologist: Iris Palacio [place] [facility] [place]: Claudication RIGHT LEFT Brachial 142.00 mmHg Brachial 143.00 mmHg Pressure (mmHg) Waveform Pressure (mmHg) Waveform 152.00 High Thigh 160.00 164.00 Below Knee 167.00 163.00 PACKAGE LINER 162.00 150.00 DPA 148.00 1.05 Ankle/Brachial Index 1.03 0.80 Pre-Exercise Toe Pressure 1.05 FINDINGS Resting NEO 1.05 on the right and 1.03 on the left Resting TBI of 0.8 on the right and 1.05 on the left Normal PVR waveforms bilaterally CONCLUSIONS No evidence of any significant arterial obstruction, based on the above findings. Dr Irineo Mcqueen MD FACC (Electronically Signed) Final Date: 08 February 2022 15:44 S
== END 2022-02-07 11:36 | disposition home or self-care (01) ==
PROVIDERS: PCP Family Medicine; Visit Provider Internal Medicine Cardiovascular Disease
DX: I73.9 Peripheral vascular disease, unspecified (principal)
CPT/HCPCS: 93923

== ENCOUNTER 2022-07-02 07:05 | Emergency (ER) | payer OTHER, SELFPAY ==
[2022-07-02] VITALS (14 sets, daily range): BP systolic 142–155; BP diastolic 75–80; PULSE 59–76; RESP 9–28; TEMP 36.4; O2SAT 93–99
--- NOTE | 2022-07-02 07:14 | ECG_ITS ---
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 Measurements Intervals [place] Rate: 61 P: -5 TN: 185 QRS: 40 QRSD: 98 T: 19 QT: 429 QTc: 435 Interpretive Statements SINUS RHYTHM MINIMAL ST DEPRESSION [0.025+ mV ST DEPRESSION] Compared to ECG 03/03/2020 23:06:14 Atrial fibrillation no longer present ST (T wave) deviation still present Electronically Signed On 07-02-2022 17:47:10 MARKETING RESEARCHER by Dru James M.D. [id number]
--- NOTE | 2022-07-02 07:21 | ED_ITS ---
HPI - Chest Pain General: Chief Complaint: Chest Pain Stated Complaint: Chest pains Time Seen by Provider: 07/02/22 07:20 Source: patient Mode of arrival: ambulatory History of Present Illness: 67-year-old female with a history of atrial fibrillation and previous cardiac ablation. She is currently on amiodarone and diltiazem. She complaining of occasional what she calls saps. She will notice some intermittently the last for a second. Literally a single heartbeat and then be gone. She has no associated radiation of pain no nausea or vomiting. She has not noticed anything that exacerbates or relieves them. That began christian watson she was at rest this morning in bed at around 530. While I was doing history at the bedside patient placed on the monitor she had several of what she describes as zaps which correlated directly with PVCs seen on the cardiac bedside monitor. There was several other PVCs that she did not notice. MD complaint: other (Palpitations) Pertinent past history: other (A. fib with previous ablation) Onset (ago): hour(s) Timing of current episode: episodic Prior episodes: Yes Onset: during rest Pain radiation: none Severity: mild Relieving factors: nothing Exacerbating factors: nothing Associated symptoms: Reports palpitations; Deny abdominal pain, diaphoresis, dyspnea, fever(s), leg edema, nausea, sense of impending doom, syncope or vomiting Treatment prior to arrival: none Review of Systems Const: Denies: fever(s), chills, fatigue, malaise or diaphoresis ENMT: Denies: throat pain, ear or mastoid pain, nasal discharge or nasal congestion Card: Reports: palpitations; Denies: chest pain, irregular heart rhythm, edema, swelling of feet/ankles or syncope Resp: Denies: dyspnea GI: Denies: abdominal pain, nausea or vomiting : Denies: flank pain, difficulty voiding, dysuria, urinary frequency or urinary urgency Skin/Breast: Denies: rash or pruritus PFSH ED PFSH: Medical History (Updated 07/02/22 @ 08:12 by Amos Chaves DO) Atrial fibrillation Diverticulitis Dyslipidemia Dysphagia GERD (gastroesophageal reflux disease) GERD (gastroesophageal reflux disease) Hemorrhoids HTN (hypertension) Surgical History History of salpingo-oophorectomy S/P hysterectomy Status post catheter ablation of atrial fibrillation 2014 Family History Father CAD (coronary artery disease) S/P CABG (coronary artery bypass graft) Sister Cancer Other Diabetes Stroke Social History Smoking and tobacco status: former smoker Alcohol intake: current Alcohol intake frequency: holidays/special occasions only Alcohol type: wine Household members: spouse Marital status: Physical Exam Const: COMMON NORMALS: no acute distress GENERAL APPEARANCE: cooperative and comfortable ORIENTATION/CONSCIOUSNESS: Yes awake, Yes oriented to person, Yes oriented to place and Yes oriented to time HENMT: COMMON NORMALS: normocephalic, atraumatic and hearing grossly normal bilaterally HEAD & SCALP: normocephalic and atraumatic Resp: COMMON NORMALS: normal respiratory effort, No retractions, No use of accessory muscles and clear to auscultation bilaterally AUSCULTATION: clear to auscultation bilaterally Cardio: COMMON NORMALS: regular rate, regular rhythm and No murmurs present (Cardio) RATE: regular rate RHYTHM: regular rhythm GI: COMMON NORMALS: Soft to palpation and No hepatosplenomegaly present AUSCULTATION: Yes normoactive bowel sounds PALPATION: Yes Soft to palpation, No Tenderness to palpation present (GI), No Guarding due to palpation present (GI) and Yes No hepatosplenomegaly present Extremity: COMMON NORMALS: normal to inspection, capillary refill normal, no clubbing, cyanosis or edema, no calf tenderness and no pedal edema Neuro: SENSORIUM/ORIENTATION: Yes oriented to person, Yes oriented to place and Yes oriented to time Skin: COMMON NORMALS: no rashes or lesions noted GENERAL SKIN EXAM: no rashes or lesions noted Course Vital Signs: Vital signs: Vital Signs Temperature 97.6 F 07/02/22 07:10 Pulse Rate 62 07/02/22 07:45 Respiratory Rate 17 07/02/22 07:45 Blood Pressure 155/80 07/02/22 07:45 Pulse Oximetry 99 07/02/22 07:10 Oxygen Delivery Me thod 07/02/22 07:10 MDM - Chest Pain Medical Decision Making CBC BMP unremarkable. Patient's symptoms correlate directly with PVCs noted on the bedside monitor. Will discharge home. Given she is already correlating these the PVCs seen on monitoring I did not order a Holter monitor. Refer her to her [employer] scout disease persist. Medical Records I reviewed the patient's medical records. Lab Data I reviewed the patient's lab results. 07/02/22 07:40 07/02/22 07:40 Laboratory Results WBC 6.4 10^3/uL (4.0-10.0) 07/02/22 07:40 RBC 4.74 10^6/uL (4.1-5.3) 07/02/22 07:40 Hgb 14.5 g/dL (11.5-15.3) 07/02/22 07:40 Hct 42.3 % (37.0-47.0) 07/02/22 07:40 MCV 89.2 fl (81-99) 07/02/22 07:40 MCH 30.6 pg (28.0-34.0) 07/02/22 07:40 MCHC 34.3 g/dL (30.0-36.0) 07/02/22 07:40 RDW 12.7 % (12.1-15.1) 07/02/22 07:40 Plt Count 278 10^3/cmm (130-400) 07/02/22 07:40 MPV 9.5 fL (7.4-10.4) 07/02/22 07:40 Neut % (Auto) 56.0 % 07/02/22 07:40 Lymph % (Auto) 30.9 % 07/02/22 07:40 [place] % (Auto) 8.5 % 07/02/22 07:40 Eos % (Auto) 3.5 % 07/02/22 07:40 Baso % (Auto) 0.8 % 07/02/22 07:40 Neut # (Auto) 3.56 10^3/uL (1.8-7.7) 07/02/22 07:40 Lymph # (Auto) 2.0 10^3/uL (0.8-4.8) 07/02/22 07:40 [place] # (Auto) 0.5 10^3/uL (0.2-0.9) 07/02/22 07:40 Eos # (Auto) 0.2 10^3/uL (0.0-0.8) 07/02/22 07:40 Baso # (Auto) 0.1 10^3/uL (0.0-0.1) 07/02/22 07:40 Nucleated RBC % (auto) 0 % 07/02/22 07:40 Nucleated RBCs # 0.0 /100WBC 07/02/22 07:40 Sodium 144 mmol/L (136-145) 07/02/22 07:40 Potassium 3.9 mmol/L (3.5-5.1) 07/02/22 07:40 Chloride 107 mmol/L (98-107) 07/02/22 07:40 Carbon Dioxide 24 mmol/L (22-29) 07/02/22 07:40 Anion Gap 16.9 (5-19) 07/02/22 07:40 BUN 24 mg/dL (8-23) H 07/02/22 07:40 Creatinine 0.9 mg/dL (0.5-0.9) 07/02/22 07:40 GFR Calculation 62.1 mL/min (90-130) L 07/02/22 07:40 Glucose 99 mg/dL (65-115) 07/02/22 07:40 Calculated Osmolality 302 mOsm/kg (285-295) H 07/02/22 07:40 Calcium 9.1 mg/dL (8.5-10.5) 07/02/22 07:40 Discharge Plan Discharge Patient Disposition: Home Clinical Impression: PVCs (premature ventricular contractions) Condition: Stable Prescriptions: No Action multivitamin Tablet 1 tab PO DAILY magnesium oxide 400 mg magnesium tablet 250 mg PO DAILY coenzyme Q10 [Co Q-10] 100 mg capsule 100 mg PO DAILY omega-3 fatty acids 500 mg capsule 500 mg PO DAILY chlorthalidone 25 mg tablet 12.5 mg PO BID Qty: 90 3RF rosuvastatin 5 mg tablet 5 mg PO DAILY Qty: 90 3RF telmisartan 80 mg tablet 40 mg PO DAILY Qty: 45 3RF Cardizem CD 120 mg capsule,extended release 24hr 120 mg PO DAILY Qty: 90 3RF Pradaxa 150 mg capsule 150 mg PO BID Qty: 180 3RF Discharge Orders: Discharge ED (Routine); Ordered 07/02/22 Ordered By: Amos Chaves Referrals: Demond Vergara MD [Primary Care Provider] - Discharge Diet: Usual diet Discharge Activity: Resume usual activity Patient Instructions: Opioid Safety, Pain Management Activity Restrictions/Additional Instructions: You were seen today for palpitations. Your symptoms correlated with monitoring that showed you were having PVCs. These are not unusual given your history and are not pathologic. Recommend that you follow-up with your [employer] scout if these persist. Coding Level of Care Code ED Technical Assistant for Chg Fwd Exam Detailed
[2022-07-02 07:50] LABS: Basophils # 0.1 10^3/uL (0.0-0.1); Basophils % 0.8 %; Eosinophils # 0.2 10^3/uL (0.0-0.8); Eosinophils % 3.5 %; Hematocrit 42.3 % (37.0-47.0); Hemoglobin 14.5 g/dL (11.5-15.3); Lymphocytes % 30.9 %; Mean Corpuscular HGB Conc 34.3 g/dL (30.0-36.0); Mean Corpuscular Hemoglobin 30.6 pg (28.0-34.0); Mean Corpuscular Volume 89.2 fl (81-99); Mean Platelet Volume 9.5 fL (7.4-10.4); Monocytes # 0.5 10^3/uL (0.2-0.9); Monocytes % 8.5 %; Neutrophils # 3.56 10^3/uL (1.8-7.7); Nucleated Red Blood Cells % 0 %; Platelet Count 278 10^3/cmm (130-400); Red Blood Count 4.74 10^6/uL (4.1-5.3); Red Cell Distribution Width 12.7 % (12.1-15.1); White Blood Count 6.4 10^3/uL (4.0-10.0)
[2022-07-02 08:06] LABS: Anion Gap 16.9 (5-19); Blood Urea Nitrogen 24 mg/dL (8-23); Calcium 9.1 mg/dL (8.5-10.5); Carbon Dioxide 24 mmol/L (22-29); Chloride 107 mmol/L (98-107); Glomerular Filtration Rate 62.1 mL/min (90-130); Glucose 99 mg/dL (65-115); Osmolality Calculated 302 mOsm/kg (285-295); Potassium 3.9 mmol/L (3.5-5.1); Sodium 144 mmol/L (136-145)
== END 2022-07-02 08:32 | disposition home or self-care (01) ==
PROVIDERS: Emergency Provider Family Medicine; PCP Family Medicine
DX: I49.3 Ventricular premature depolarization (principal); I10 Essential (primary) hypertension; K21.9 Gastro-esophageal reflux disease without esophagitis
CPT/HCPCS: 80048; 85025; 93005; 99284

== ENCOUNTER 2023-07-09 17:17 | Emergency (ER) | payer OTHER, SELFPAY ==
[2023-07-09 17:24] VITALS: BP 184/78; PULSE 73; RESP 18; TEMP 36.9; O2SAT 97; BMI 30.2
--- NOTE | 2023-07-09 17:25 | ECG_ITS ---
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 Measurements Intervals [place] Rate: 68 P: 81 MI: 213 QRS: -13 QRSD: 97 T: 43 QT: 401 QTc: 429 Interpretive Statements SINUS RHYTHM WITH FIRST DEGREE AV BLOCK WITH FREQUENT VENTRICULAR PREMATURE COMPLEXES MINIMAL ST DEPRESSION [0.025+ mV ST DEPRESSION] Compared to ECG 07/02/2022 07:27:29 First degree AV block now present ST (T wave) deviation still present Electronically Signed On 07-10-2023 7:09:58 PHYSICIAN OFFICE NURSE by Dru James M.D. [email or web address] [id number]
--- NOTE | 2023-07-09 17:29 | W.ED.ARRPALP ---
HPI - Arrhythmia/Palpitations General: Chief Complaint: Arrhythmia/Palpitations Stated Complaint: sent over by orlando kim ekg done Time Seen by Provider: 07/09/23 17:22 Source: patient Mode of arrival: ambulatory Limitations: no limitations History of Present Illness: 68-year-old female and had a history of A-fib is paroxysmal along with PVCs in the past. States over the last 2 days she is felt like she is having arrhythmia and having skipped beats she is felt some slight lightheadedness she denies any chest pain denies any shortness of breath she does have PVCs here on her EKG. She denies any worsening proving factors. Associated symptoms: Deny nausea or vomiting Review of Systems Const: Denies: fever(s), chills, body aches or change in appetite Eyes: Denies: blurry vision or eye discomfort ENMT: Denies: throat pain or dental pain Card: Reports: palpitations; Denies: chest pain Resp: Denies: dyspnea GI: Denies: abdominal pain, nausea, vomiting or diarrhea Musc: Denies: neck pain or back pain Skin/Breast: Denies: rash Neuro: Denies: headache(s) PFSH ED PFSH: Medical History (Updated 07/09/23 @ 18:11 by Elham Bhakta MD) GERD (gastroesophageal reflux disease) Diverticulitis Hemorrhoids Dysphagia GERD (gastroesophageal reflux disease) HTN (hypertension) Atrial fibrillation Dyslipidemia Surgical History History of salpingo-oophorectomy S/P hysterectomy Status post catheter ablation of atrial fibrillation 2014 Family History Father CAD (coronary artery disease) S/P CABG (coronary artery bypass graft) Sister Cancer Other Diabetes Stroke Social History Smoking and tobacco/nicotine status: former use of tobacco/nicotine Alcohol intake: current Alcohol intake frequency: holidays/special occasions only Alcohol type: wine Household members: spouse Marital status: Physical Exam Const: COMMON NORMALS: no acute distress, patient oriented x3 and healthy appearing HENMT: COMMON NORMALS: normocephalic and atraumatic HEAD & SCALP: normocephalic and atraumatic Eye: COMMON NORMALS: Equal, round and reactive pupils present and EOMs intact bilaterally PUPIL: Yes Equal, round and reactive pupils present Neck/C-Spine: COMMON NORMALS: full ROM and supple Chest: COMMONS NORMALS: normal inspection of the chest and normal palpation of entire chest wall Resp: COMMON NORMALS: normal respiratory effort, No retractions, No use of accessory muscles and clear to auscultation bilaterally AUSCULTATION: clear to auscultation bilaterally Cardio: COMMON NORMALS: regular rate, regular rhythm and No murmurs present (Cardio) RATE: regular rate RHYTHM: regular rhythm GI: COMMON NORMALS: Normal to inspection, nondistended, normoactive bowel sounds present, Soft to palpation, non-tender and no masses PALPATION: Yes Soft to palpation Extremity: COMMON NORMALS: normal to inspection and full ROM Neuro: COMMON NORMALS: patient oriented x3, moves all extremities and no focal motor deficits Psych: COMMON NORMALS: mental status grossly normal, Normal thought process present and cooperative THOUGHT PROCESS: Normal thought process present Skin: COMMON NORMALS: no rashes or lesions noted and no wounds GENERAL SKIN EXAM: no rashes or lesions noted Course Vital Signs: Vital signs: Vital Signs Temperature 98.4 F 07/09/23 17:24 Pulse Rate 64 07/09/23 17:45 Respiratory Rate 14 07/09/23 17:45 Blood Pressure 150/72 07/09/23 17:45 Pulse Oximetry 96 07/09/23 17:45 Oxygen Delivery Me thod Room Air 07/09/23 17:45 MDM - Arrhythmia/Palpitations Medical Decision Making Patient presents here with palpitations does have PVCs here that are less frequent at this time she feels improved here her blood work including troponin are normal she is stable for discharge 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 Medical Records I reviewed the patient's medical records. Lab Data I reviewed the patient's lab results. 07/09/23 17:31 07/09/23 17:31 Laboratory Results WBC 9.37 10^3/uL (3.29-11.43) 07/09/23 17:31 RBC 4.95 10^6/uL (3.85-5.65) 07/09/23 17:31 Hgb 14.70 g/dL (11.27-16.99) 07/09/23 17:31 Hct 43.6 % (36-47) 07/09/23 17: MCV 88.1 fl (85-98) 07/09/23 17: MCH 29.7 pg (27-33) 07/09/23 17: MCHC 33.7 g/dL (30-55) 07/09/23 17: RDW 13.2 % (12.1-15.1) 07/09/23 17:31 Plt Count 288 10^3/cmm (157-399) 07/09/23 17:31 MPV 9.5 fL (7.4-10.4) 07/09/23 17: Neut % (Auto) 54.3 % 07/09/23 17: Lymph % (Auto) 33.2 % 07/09/23 17:31 Bradford % (Auto) 9.3 % 07/09/23 17:31 Eos % (Auto) 2.5 % 07/09/23 17:31 Baso % (Auto) 0.5 % 07/09/23 17: Neut # (Auto) 5.09 10^3/uL (1.8-7.7) 07/09/23 17: Lymph # (Auto) 3.1 10^3/uL (0.8-4.8) 07/09/23 17:31 Bradford # (Auto) 0.9 10^3/uL (0.2-0.9) 07/09/23 17:31 Eos # (Auto) 0.2 10^3/uL (0.0-0.8) 07/09/23 17: Baso # (Auto) 0.1 10^3/uL (0.0-0.1) 07/09/23 17:31 Nucleated RBC % (auto) 0 % 07/09/23 17: Nucleated RBCs # 0.0 /100WBC 07/09/23 17:31 Sodium 139 mmol/L (136-145) 07/09/23 17:31 Potassium 3.6 mmol/L (3.5-5.1) 07/09/23 17:31 Chloride 99 mmol/L (98-107) 07/09/23 17:31 Carbon Dioxide 25 mmol/L (22-29) 07/09/23 17:31 Anion Gap 18.6 (5-19) 07/09/23 17:31 BUN 22 mg/dL (8-23) 07/09/23 17:31 Creatinine 1.1 mg/dL (0.5-0.9) H 07/09/23 17:31 GFR Calculation 49.1 mL/min (90-130) L 07/09/23 17:31 Glucose 110 mg/dL (65-115) 07/09/23 17:31 Calculated Osmolality 292 mOsm/kg (285-295) 07/09/23 17:31 Calcium 9.6 mg/dL (8.5-10.5) 07/09/23 17:31 Total Bilirubin 0.3 mg/dL (0.15-1.2) 07/09/23 17:31 AST 17 U/L (0-32) 07/09/23 17:31 ALT 17 U/L (0-33) 07/09/23 17:31 Alkaline Phosphatase 56 U/L (35-105) 07/09/23 17:31 Troponin T Baseline 7 ng/L (0-10) 07/09/23 17:31 Total Protein 7.7 g/dL (6.6-8.7) 07/09/23 17:31 Albumin 4.6 g/dL (3.5-5.2) 07/09/23 17:31 Globulin 3.1 g/dL (1.3-4.6) 07/09/23 17:31 All radiology interpretation(s) finalized by discharge EKG Data EKG 1: I personally reviewed and interpreted this EKG as follows: EKG interpretation date: 07/09/23 EKG interpretation time: 17:25 Interpretation: nsr hr [address] or t wave abnormalities qrs 97 qtc 419 Discharge Plan Discharge Patient Disposition: Home Clinical Impression: Palpitations Condition: Stable Prescriptions: No Action multivitamin Tablet 1 tab PO DAILY magnesium oxide 400 mg magnesium tablet 250 mg PO DAILY coenzyme Q10 [Co Q-10] 100 mg capsule 100 mg PO DAILY omega-3 fatty acids 500 mg capsule 500 mg PO DAILY amiodarone 200 mg tablet 200 mg PO DAILY telmisartan 80 mg tablet 40 mg PO BID Qty: 90 3RF chlorthalidone 25 mg tablet 12.5 mg PO DAILY Qty: 45 3RF Cardizem CD 120 mg capsule,extended release 24hr 120 mg PO DAILY Qty: 90 3RF Pradaxa 150 mg capsule 150 mg PO BID Qty: 60 1RF Discharge Orders: Discharge ED (Routine); Ordered 07/09/23 Ordered By: Elham Bhakta Referrals: Demond Vergara MD [Primary Care Provider] - 1-3 days Discharge Diet: Advance as tolerated Discharge Activity: Resume usual activity Patient Instructions: Heart Palpitations (ED) Coding Level of Care Code ED 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
[2023-07-09 17:43] LABS: Basophils # 0.1 10^3/uL (0.0-0.1); Basophils % 0.5 %; Eosinophils # 0.2 10^3/uL (0.0-0.8); Eosinophils % 2.5 %; Hematocrit 43.6 % (36-47); Lymphocytes # 3.1 10^3/uL (0.8-4.8); Lymphocytes % 33.2 %; Mean Corpuscular HGB Conc 33.7 g/dL (30-55); Mean Corpuscular Hemoglobin 29.7 pg (27-33); Mean Corpuscular Volume 88.1 fl (85-98); Mean Platelet Volume 9.5 fL (7.4-10.4); Monocytes # 0.9 10^3/uL (0.2-0.9); Monocytes % 9.3 %; Neutrophils # 5.09 10^3/uL (1.8-7.7); Neutrophils % 54.3 %; Nucleated Red Blood Cells % 0 %; Platelet Count 288 10^3/cmm (157-399); Red Blood Count 4.95 10^6/uL (3.85-5.65); Red Cell Distribution Width 13.2 % (12.1-15.1); White Blood Count 9.37 10^3/uL (3.29-11.43)
[2023-07-09 17:45] VITALS: BP 150/72; PULSE 64; RESP 14; O2SAT 96
[2023-07-09 18:03] LABS: Troponin(5th) Baseline 7 ng/L (0-10)
[2023-07-09 18:04] LABS: Alanine Aminotransferase 17 U/L (0-33); Albumin Level 4.6 g/dL (3.5-5.2); Alkaline Phosphatase 56 U/L (35-105); Anion Gap 18.6 (5-19); Aspartate Amino Transferase 17 U/L (0-32); Blood Urea Nitrogen 22 mg/dL (8-23); Calcium 9.6 mg/dL (8.5-10.5); Carbon Dioxide 25 mmol/L (22-29); Chloride 99 mmol/L (98-107); Globulin 3.1 g/dL (1.3-4.6); Glomerular Filtration Rate 49.1 mL/min (90-130); Glucose 110 mg/dL (65-115); Osmolality Calculated 292 mOsm/kg (285-295); Potassium 3.6 mmol/L (3.5-5.1); Sodium 139 mmol/L (136-145); Total Bilirubin 0.3 mg/dL (0.15-1.2); Total Protein 7.7 g/dL (6.6-8.7)
[2023-07-09 18:17] VITALS: BP 138/72; PULSE 64; RESP 21; O2SAT 100
--- NOTE | 2023-07-10 09:39 | DCPLANNER ---
Message was sent to Dr. Flynn office on 07/10/23 at 0940. [facility] to contact patient.
== END 2023-07-09 18:18 | disposition home or self-care (01) ==
PROVIDERS: Emergency Provider Emergency Medicine; PCP Family Medicine
DX: R00.2 Palpitations (principal); Z87.891 Personal history of nicotine dependence; I10 Essential (primary) hypertension; E78.5 Hyperlipidemia, unspecified
CPT/HCPCS: 80048; 80053; 84484; 85025; 93005; 99284; 99285

== ENCOUNTER 2023-11-24 12:56 | Outpatient (CLI) | payer MEDICARE, SELFPAY ==
--- NOTE | 2023-11-24 13:04 | XR_ITS ---
WS: [id number] SCREENING DEXA SCAN [email or web address] CLINICAL INFORMATION: OSTEOPOROSIS COMPARISON: 2021 FINDINGS: The L1-L4 bone mineral density measures 0.941 g/cm2. This corresponds to a T score score of -2.0 and Z score of -0.6. Left femoral neck bone mineral density measures 0.839 g/cm2. This corresponds to a T score of -1.3 an d Z score of 0.0. Right femoral neck bone mineral density measures 0.820 g/cm2. This corresponds to a T score -1.5of an d Z score of -0.2. Mean femoral neck bone mineral density measures 0.830 g/cm2. This corresponds to a T score of -1.4 an d Z score of -0.1. XR/XR DEXA axial skeleton* [id number] IMPRESSION: Osteopenia lumbar spine. Osteopenia femoral necks. Patient's FRAX calculated 10 year probability for major osteoporotic fracture i s 21.4% and osteoporotic hip fracture is 5.1%. Bone mineral density lumbar spine increased 7.5% Bone mineral density femoral necks increased 1.2%
== END 2023-11-24 12:57 | disposition home or self-care (01) ==
LOC: RAD 12:56
PROVIDERS: PCP Family Medicine; Visit Provider Family Medicine
DX: M81.0 Age-related osteoporosis without current pathological fracture (principal); M85.89 Other specified disorders of bone density and structure, multiple sites
CPT/HCPCS: 77080

== ENCOUNTER → 2024-04-13 13:43 | Outpatient (BNVA) | payer MEDICARE, SELFPAY | PROVIDERS: PCP Family Medicine; Visit Provider Internal Medicine | DX: I48.0 Paroxysmal atrial fibrillation (principal); I10 Essential (primary) hypertension; E78.5 Hyperlipidemia, unspecified; K21.9 Gastro-esophageal reflux disease without esophagitis; Z87.891 Personal history of nicotine dependence | CPT/HCPCS: 99214 ==

== ENCOUNTER 2024-04-14 21:39 | Emergency (ER) | payer MEDICARE, SELFPAY ==
[2024-04-14 21:44] VITALS: BP 159/80; PULSE 63; RESP 18; TEMP 36.8; O2SAT 96
--- NOTE | 2024-04-14 21:56 | W.ED.BACK ---
HPI - Back Pain/Injury General: Chief Complaint: Back Pain/Injury Stated Complaint: sciatica pain Time Seen by Provider: 04/14/24 21:42 Source: patient Mode of arrival: ambulatory Limitations: no limitations History of Present Illness: Patient is a 69-year-old female presents the emergency department complaining of right lower back pain radiating down right leg the past couple days. States she has a history of sciatic on the left side, but notes that now it is on the right. She believes that she favoring her left leg too much recently and this caused pain on the right. Denies any trauma, bowel or bladder incontinence, fevers, or other concerning symptoms. Today she was prescribed steroids and Zanaflex, and took this at 1940 tonight and is not reporting any relief. Pain with any range of motion. No other symptoms at this time. MD elicited complaint: back pain Pertinent past history: prior back pain Onset (ago): day(s) Timing: constant Severity: severe Pain scale (0-10): 10 Similar Symptoms Previously: Yes Location: right lower back Radiation: right upper leg Exacerbating factors: movement Associated symptoms: Deny abdominal pain, chills, fever(s), nausea or vomiting Treatments prior to arrival: other (Muscle relaxer, steroid) Related Data Home Medications Medication Instructions Recorded Confirmed magnesium oxide 250 mg PO DAILY 12/08/19 04/13/24 coenzyme Q10 100 mg capsule (Co 100 mg PO DAILY 12/03/21 04/13/24 Q-10) omega-3 fatty acids 500 mg capsule 500 mg PO DAILY 12/03/21 04/13/24 cholecalciferol (vitamin D3) 125 125 mcg PO DAILY 10/10/23 04/13/24 mcg (5,000 unit) capsule vitamin K2 90 mcg capsule 90 mcg PO DAILY 10/10/23 04/13/24 Previous Rx's Medication Instructions Recorded dabigatran etexilate 150 mg 150 mg PO BID #60 caps 06/03/23 capsule (Pradaxa) amiodarone 200 mg tablet 200 mg PO DAILY #90 tabs 03/29/24 chlorthalidone 25 mg tablet 12.5 mg (1/2 x 25 mg) PO DAILY #45 03/29/24 tabs telmisartan 80 mg tablet 40 mg (1/2 x 80 mg) PO BID #90 tabs 03/29/24 diltiazem HCl 120 mg 120 mg PO BID #180 caps 04/13/24 capsule,extended release 24 hr (Cardizem CD) Allergies Allergy/AdvReac Type Severity Reaction Status Date / Time [id number] Reductase Allergy Unknown Unknown Verified 04/14/24 21:48 Inhibitor codeine AdvReac Mild ADR-Vomitin Verified 04/14/24 21:48 g Review of Systems General: Reports: 10 or more systems reviewed and unremarkable except in HPI and below Const: Denies: fever(s) or chills Card: Denies: chest pain Resp: Denies: dyspnea or productive cough GI: Denies: abdominal pain, nausea, vomiting or diarrhea : Denies: flank pain Musc: Reports: back pain, extremity pain and limited range of motion; Denies: neck pain, extremity swelling, joint pain, joint swelling, joint redness, joint warmth or muscle weakness Skin/Breast: Denies: rash Neuro: Denies: headache(s), numbness in extremities or weakness in extremities PFSH ED PFSH: Medical History (Updated 04/14/24 @ 22:48 by ZAIDA Miranda) GERD (gastroesophageal reflux disease) Diverticulitis Hemorrhoids Dysphagia GERD (gastroesophageal reflux disease) HTN (hypertension) Atrial fibrillation Dyslipidemia Surgical History History of salpingo-oophorectomy S/P hysterectomy Status post catheter ablation of atrial fibrillation 2014 Family History Father CAD (coronary artery disease) S/P CABG (coronary artery bypass graft) Sister Cancer Other Diabetes Stroke Social History Smoking and tobacco/nicotine status: former use of tobacco/nicotine Alcohol intake: current Alcohol intake frequency: holidays/special occasions only Alcohol type: wine Household members: spouse Marital status: Physical Exam Const: COMMON NORMALS: patient oriented x3, no limitations, healthy appearing, alert and well nourished OTHER: Appears uncomfortable HENMT: COMMON NORMALS: normocephalic and atraumatic HEAD & SCALP: normocephalic and atraumatic Neck/C-Spine: COMMON NORMALS: full ROM, supple and no meningeal signs Resp: COMMON NORMALS: normal respiratory effort, No use of accessory muscles and clear to auscultation bilaterally AUSCULTATION: clear to auscultation bilaterally Cardio: COMMON NORMALS: regular rate and regular rhythm RATE: regular rate RHYTHM: regular rhythm Back/Pelvis: OTHER: Negative straight leg raise. No significant reproducible tenderness to palpation. Pain with range of motion, specifically lateral rotation of the hips. Extremity: COMMON NORMALS: normal to inspection, full ROM, capillary refill normal, no joint enlargement and no clubbing, cyanosis or edema Neuro: COMMON NORMALS: patient oriented x3, moves all extremities, no focal motor deficits, no sensory deficits noted and deep tendon reflexes 2+ bilaterally SENSORIUM/ORIENTATION: Yes alert MENINGEAL SIGNS: Yes no meningeal signs Skin: COMMON NORMALS: no rashes or lesions noted GENERAL SKIN EXAM: no rashes or lesions noted Course Vital Signs: Vital signs: Vital Signs Temperature 98.2 F 04/14/24 21:44 Pulse Rate 63 04/14/24 21:44 Respiratory Rate 18 04/14/24 21:44 Blood Pressure 159/80 04/14/24 21:44 Pulse Oximetry 96 04/14/24 21:44 MDM - Back Pain/Injury Medical Decision Making Patient presented with right-sided low back pain radiating down the right leg, comparable to left-sided sciatica that she had a couple weeks ago. She believes that favoring that left leg caused her right leg did not be hurting. She saw primary care today was started on muscle relaxers and steroids. She took first doses of this a couple of hours prior to arrival, and after receiving shot of muscle relaxer, steroid, and Toradol here was not reporting any relief of pain. Offered her [place], states that this made her sick and she would rather not do this and go home and treat conservatively as she has been. Discussed proper technique and where to place heat pack, as well as other therapies. Patient had no red flag back symptoms reported, and offered imaging to her she states that this is not necessary and that she will continue treating at home. I do believe that she has not allowed enough time for medications to act, and by the next couple of days she will start to feel better. However she is informed that if she is having worsening of pain or persistence, to get with primary care so that they can refer her to Ortho/spine or do further imaging as an outpatient. Reasons to return were otherwise discussed. No radiology studies performed this visit Discharge Plan Discharge Patient Disposition: Home Clinical Impression: Sciatica Condition: Stable Prescriptions: No Action magnesium oxide 400 mg magnesium tablet 250 mg PO DAILY coenzyme Q10 [Co Q-10] 100 mg capsule 100 mg PO DAILY omega-3 fatty acids 500 mg capsule 500 mg PO DAILY Cardizem CD 120 mg capsule,extended release 24hr 120 mg PO BID Qty: 180 3RF cholecalciferol (vitamin D3) 125 mcg (5,000 unit) capsule 125 mcg PO DAILY vitamin K2 90 mcg capsule 90 mcg PO DAILY Pradaxa 150 mg capsule 150 mg PO BID Qty: 60 1RF amiodarone 200 mg tablet 200 mg PO DAILY Qty: 90 0RF chlorthalidone 25 mg tablet 12.5 mg PO DAILY Qty: 45 0RF telmisartan 80 mg tablet 40 mg PO BID Qty: 90 0RF Discharge Orders: Discharge ED (Routine); Ordered 04/14/24 Ordered By: Ryan Moser Referrals: Demond Vergara MD [Primary Care Provider] - Discharge Diet: Usual diet Discharge Activity: Increase activity as tolerated Patient Instructions: Sciatica (ED) Activity Restrictions/Additional Instructions: Continue taking your steroids and muscle relaxers as prescribed. Adjustment of heat pack as discussed, and you may try other conservative measurements that were discussed in the emergency department tonight. With any recurrence or worsening of the pain, follow-up with your primary care provider to discuss possible referral for imaging at that time. Tylenol and ibuprofen at home. Coding Level of Care Code ED Critical Power Technician for Tanner Diaz
[2024-04-14] MEDS: ketorolac 60 mg/2 mL INJ IM (22:01)
[2024-04-14] MEDS: orphenadrine 30 mg/mL Inj 2 mL 60 MG IM (22:01)
[2024-04-14] MEDS: dexamethasone 10 mg/mL INJ IM (22:01)
[2024-04-14 22:53] VITALS: BP 176/79; PULSE 76; O2SAT 98
== END 2024-04-14 22:56 | disposition home or self-care (01) ==
PROVIDERS: Emergency Provider Physician Assistant; PCP Family Medicine
DX: M54.31 Sciatica, right side (principal); I10 Essential (primary) hypertension; E78.5 Hyperlipidemia, unspecified; Z87.891 Personal history of nicotine dependence
CPT/HCPCS: 96372; 99284; J1100; J1885; J2360

== ENCOUNTER 2024-04-20 17:12 | Emergency (ER) | payer MEDICARE, SELFPAY ==
[2024-04-20 18:21] VITALS: BP 173/87; PULSE 66; RESP 16; TEMP 36.8; O2SAT 98
--- NOTE | 2024-04-20 18:33 | CTR_ITS ---
PROCEDURE INFORMATION: Exam: CT Lumbar Spine Without Contrast Exam date and time: 04/20/2024 9:11 PM Age: 69 years old Clinical indication: Low back pain; Additional info: Low back pain worsening over past few weeks TECHNIQUE: Imaging protocol: Computed tomography of the lumbar spine without contrast. Radiation optimization: All CT scans at this facility use at least one of these dose optimization techniques: automated exposure control; mA and/or kV adjustment per patient size (includes targeted exams where dose is matched to clinical indication); or iterative reconstruction. COMPARISON: CR XR lumbar spine 2-3V* [id number] 04/19/2024 11:20 AM RADIATION DOSE METRICS: Total DLP (mGy-cm): 797 FINDINGS: Bones/joints: The lumbar vertebral body heights are maintained. Transitional appearing L5 vertebral body. Grade 1 anterolisthesis of L4 on L5 measuring up to 0.3 cm. The remaining lumbar vertebral bodies are normally aligned. Mild disc space narrowing at L4-L5. L1-L2: No significant disc bulge or herniation. No severe spinal canal stenosis. No significant neural foraminal narrowing. L2-L3: Broad concentric disc bulge and bilateral facet arthropathy contributing to mild central canal stenosis. No significant neuroforaminal narrowing. L3-L4: Broad concentric disc bulge and bilateral facet arthropathy contributing to moderate central canal stenosis. Moderate bilateral neuroforaminal narrowing. L4-L5: Broad concentric disc bulge and bilateral facet arthropathy contributing to [id number] central canal stenosis. Moderate bilateral neuroforaminal narrowing. L5-S1: No significant disc bulge or herniation. No severe spinal canal stenosis. No significant neural foraminal narrowing. Soft tissues: Visualized soft tissues are unremarkable. CT/CT lumbar spine wo con* [id number] IMPRESSION: No acute bony abnormality. Degenerative changes of the lumbar spine. If symptoms persist, consider further evaluation with MRI, if MRI is clinically safe to obtain.
[2024-04-20 18:52] VITALS: RESP 16
--- NOTE | 2024-04-20 19:01 | ED_ITS ---
HPI - Back Pain/Injury General: Chief Complaint: Back Pain/Injury Stated Complaint: back pain Time Seen by Provider: 04/20/24 18:16 Source: patient Mode of arrival: wheelchair Limitations: no limitations History of Present Illness: Patient is a 69-year-old female presenting to the emergency department for the second time in 2 weeks for worsening lower extremity pain, stating that is an exacerbation of her sciatica. Seen here 2 weeks ago, was treated medically, and though at that time only reported some relief of pain, she was followed up with primary care. She had x-ray with them yesterday, in addition to this was started on morphine for pain relief as well as steroids. She is here today stating that initially these medications helped, however now is having severe worsening of pain, primarily at this time is to the right anterolateral prado. At this time not reporting much back pain. She is still denying any red flag back symptoms such as incontinence of bowel or bladder or distal paralysis. She has no other new symptoms to report at this time, no new trauma since being seen last. In addition, she is denying any prolonged traveling recently, no significant sedentary lifestyle, no history of DVT, and no other concerning signs or symptoms of a blood clot. In addition, she states that she is on Pradaxa. MD elicited complaint: other (Right lower extremity pain, reports history of sciatica) Pertinent past history: prior back pain Onset (ago): week(s) Timing: progressively worsening Severity: severe Similar Symptoms Previously: Yes Location: lumbar spine Radiation: right leg below the knee Associated symptoms: Deny abdominal pain, chills, fever(s), nausea or vomiting Related Data Home Medications Medication Instructions Recorded Confirmed magnesium oxide 250 mg PO DAILY 12/08/19 04/13/24 coenzyme Q10 100 mg capsule (Co 100 mg PO DAILY 12/03/21 04/13/24 Q-10) omega-3 fatty acids 500 mg capsule 500 mg PO DAILY 12/03/21 04/13/24 cholecalciferol (vitamin D3) 125 125 mcg PO DAILY 10/10/23 04/13/24 mcg (5,000 unit) capsule vitamin K2 90 mcg capsule 90 mcg PO DAILY 10/10/23 04/13/24 Previous Rx's Medication Instructions Recorded dabigatran etexilate 150 mg 150 mg PO BID #60 caps 06/03/23 capsule (Pradaxa) amiodarone 200 mg tablet 200 mg PO DAILY #90 tabs 03/29/24 chlorthalidone 25 mg tablet 12.5 mg (1/2 x 25 mg) PO DAILY #45 03/29/24 tabs telmisartan 80 mg tablet 40 mg (1/2 x 80 mg) PO BID #90 tabs 03/29/24 diltiazem HCl 120 mg 120 mg PO BID #180 caps 04/13/24 capsule,extended release 24 hr (Cardizem CD) gabapentin 300 mg capsule 300 mg PO BID #30 caps 04/20/24 ondansetron HCl 4 mg tablet 4 mg PO Q8H #30 tabs 04/20/24 Allergies Allergy/AdvReac Type Severity Reaction Status Date / Time [id number]-[id number] Reductase Allergy Unknown Unknown Verified 04/14/24 21:48 Inhibitor codeine AdvReac Mild ADR-Vomitin Verified 04/14/24 21:48 g Review of Systems General: Reports: 10 or more systems reviewed and unremarkable except in HPI and below Const: Denies: fever(s) or chills Card: Denies: chest pain Resp: Denies: dyspnea or productive cough GI: Denies: abdominal pain, nausea, vomiting or diarrhea : Denies: flank pain Musc: Reports: back pain, extremity pain and limited range of motion; Denies: neck pain, extremity swelling, joint pain, joint swelling, joint redn ess, joint warmth or muscle weakness Skin/Breast: Denies: rash Neuro: Denies: headache(s), numbness in extremities or weakness in extremities [facility] ED PFSH: Medical History (Updated 04/20/24 @ 22:38 by ZAIDA Miranda) GERD (gastroesophageal reflux disease) Diverticulitis Hemorrhoids Dysphagia GERD (gastroesophageal reflux disease) HTN (hypertension) Atrial fibrillation Dyslipidemia Surgical History History of salpingo-oophorectomy S/P hysterectomy Status post catheter ablation of atrial fibrillation 2014 Family History Father CAD (coronary artery disease) S/P CABG (coronary artery bypass graft) Sister Cancer Other Diabetes Stroke Social History Smoking and tobacco/nicotine status: former use of tobacco/nicotine Alcohol intake: current Alcohol intake frequency: holidays/special occasions only Alcohol type: wine Household members: spouse Marital status: Physical Exam Const: COMMON NORMALS: no acute distress, patient oriented x3, no limitations, healthy appearing, alert and well nourished HENMT: COMMON NORMALS: normocephalic and atraumatic HEAD & SCALP: normocephalic and atraumatic Neck/C-Spine: COMMON NORMALS: full ROM, supple and no meningeal signs Resp: COMMON NORMALS: normal respiratory effort, No use of accessory muscles and clear to auscultation bilaterally AUSCULTATION: clear to auscultation bilaterally Cardio: COMMON NORMALS: regular rate and regular rhythm RATE: regular rate RHYTHM: regular rhythm Back/Pelvis: OTHER: There is no significant reproducible tenderness to palpation of the lumbar spine. In addition there is no reproducible tenderness to palpation of the paralumbar muscles. No step-off deformity. No signs of trauma. Endorses pain with active range of motion of the low back, worse with lateral rotation of the hips though this exam somewhat limited due to her being in a wheelchair. Extremity: COMMON NORMALS: normal to inspection, full ROM, capillary refill normal, no joint enlargement and no clubbing, cyanosis or edema NARRATIVE EXTREMITY EXAM: Negative Homans' sign on the right lower extremity. No significant reproducible tenderness to palpation of the right lower extremity. No calf tenderness. 2+ DP/PT pulses of the right lower extremity. No popliteal palpable cord Neuro: COMMON NORMALS: patient oriented x3, moves all extremities, no focal motor deficits and no sensory deficits noted SENSORIUM/ORIENTATION: Yes alert MENINGEAL SIGNS: Yes no meningeal signs Skin: COMMON NORMALS: no rashes or lesions noted GENERAL SKIN EXAM: no rashes or lesions noted Course Vital Signs: Vital signs: Vital Signs Temperature 98.2 F 04/20/24 18:21 Pulse Rate 61 04/20/24 20:17 Respiratory Rate 16 04/20/24 22:47 Blood Pressure 149/84 04/20/24 20:17 Pulse Oximetry 97 04/20/24 20:17 Oxygen Delivery Me thod Room Air 04/20/24 22:47 MDM - Back Pain/Injury Medical Decision Making Patient presented with right lower extremity pain, which she has had in the past due to sciatica. She was seen here couple weeks ago for the same thing was referred back to primary care and treated medically at that time. Due to her persistence of pain and worsening right lower extremity pain CT lumbar spine was ordered and negative for any significant degenerative changes. Examination for DVT sinus was completely negative, she did negative Homans' sign no palpable cord and no concerning historical elements. Good distal pulses were appreciated and no calf tenderness or skin color changes. She had seen primary care yesterday where she had an x-ray done that again did not demonstrate any significant acute findings, and was started on morphine as well as steroids. She had stated the morphine was improving her pain but was making her sick to her stomach, and the pain was still noted to be worsening in between doses and she was concerned of how much morphine she was taking. Here gave her first dose of gabapentin, which she initially threw up but after receiving IM Zofran was given again prior to discharge. I sat down with the patient and had a discussion with her in regards to us referring her to orthopedic/spine for further evaluation and potentially an MRI. Also, we will start her on 300 mg of gabapentin twice daily to treat any neuropathic origin of her pain. I spoke with the patient's primary care provider, Dr. Vergara, in regards to this plan and disposition, to which she kindly agrees is appropriate at this time. With this visit, patient again did not endorse any red flag symptoms such as bowel or bladder incontinence or distal paralysis, and I do believe that her pain is originating from lower back pathology that evaluation would further benefit from an MRI as an outpatient. Patient does agree with this plan, and she will continue medications as prescribed. Also at her request, will send Zofran to pharmacy to treat nausea from her morphine. All other questions and concerns addressed, return precautions given. Labs Radiology Impressions Lumbar Spine CT 04/20/24 18:33 IMPRESSION: No acute bony abnormality. Degenerative changes of the lumbar spine. If symptoms persist, consider further evaluation with MRI, if MRI is clinically safe to obtain. All radiology interpretation(s) finalized by discharge Discharge Plan Discharge Patient Disposition: Home Clinical Impression: Lumbar radiculopathy Condition: Stable Prescriptions: New ondansetron HCl 4 mg tablet 4 mg PO Q8H Qty: 30 0RF gabapentin 300 mg capsule 300 mg PO BID Qty: 30 0RF No Action magnesium oxide 400 mg magnesium tablet 250 mg PO DAILY coenzyme Q10 [Co Q-10] 100 mg capsule 100 mg PO DAILY omega-3 fatty acids 500 mg capsule 500 mg PO DAILY Cardizem CD 120 mg capsule,extended release 24hr 120 mg PO BID Qty: 180 3RF cholecalciferol (vitamin D3) 125 mcg (5,000 unit) capsule 125 mcg PO DAILY vitamin K2 90 mcg capsule 90 mcg PO DAILY Pradaxa 150 mg capsule 150 mg PO BID Qty: 60 1RF amiodarone 200 mg tablet 200 mg PO DAILY Qty: 90 0RF chlorthalidone 25 mg tablet 12.5 mg PO DAILY Qty: 45 0RF telmisartan 80 mg tablet 40 mg PO BID Qty: 90 0RF Discharge Orders: Discharge ED (Routine); Ordered 04/20/24 Ordered By: Ryan Moser Referrals: Demond Vergara MD [Primary Care Provider] - Discharge Diet: Usual diet Discharge Activity: Increase activity as tolerated Patient Instructions: Opioid Safety, Pain Management Activity Restrictions/Additional Instructions: Follow-up with orthopedic/spine as discussed. Take gabapentin as prescribed and follow-up with your primary care provider for further monitoring of this. Continue conservative therapies at home such as heat and rest. You may continue medications that you were prescribed, and take Zofran for nausea relief. Return with any new or concerning symptoms you may have. Coding Level of Care Code ED Big Machine Consultant for Tanner Diaz
[2024-04-20] MEDS: gabapentin 300 mg Capsule PO ×2 (19:16→22:43)
[2024-04-20] MEDS: ondansetron 2 mg/ML SDV 2 mL 4 MG IM (19:41)
[2024-04-20 20:17] VITALS: BP 149/84; PULSE 61; O2SAT 97
[2024-04-20] MEDS: ondansetron 4 MG Tablet PO (22:43)
[2024-04-20 22:47] VITALS: RESP 16
--- NOTE | 2024-04-21 08:51 | DCPLANNER ---
Message sent to [facility] for back pain- radiculopathy
== END 2024-04-20 22:51 | disposition home or self-care (01) ==
PROVIDERS: Emergency Provider Physician Assistant; PCP Family Medicine
DX: M54.16 Radiculopathy, lumbar region (principal); I10 Essential (primary) hypertension; E78.5 Hyperlipidemia, unspecified; Z87.891 Personal history of nicotine dependence
CPT/HCPCS: 72131; 96372; 99284; J2405; Q0162

== ENCOUNTER → 2024-04-27 15:23 | Outpatient (BNVA) | payer MEDICARE, SELFPAY | PROVIDERS: PCP Family Medicine; Visit Provider Orthopaedic Surgery | DX: M54.9 Dorsalgia, unspecified (principal) | CPT/HCPCS: 72110; 99204 ==

== ENCOUNTER 2024-05-13 16:37 | Outpatient (CLI) | payer MEDICARE, SELFPAY ==
--- NOTE | 2024-05-13 16:45 | MR_ITS ---
WS: [id number] MRI LUMBAR SPINE NONCONTRAST TECHNIQUE: Sagittal T1, T2 and STIR imaging. Axial T1 and T2 imaging. CLINICAL INFORMATION: back pain COMPARISON: CT lumbar 04/20/2024 FINDINGS: Mild lumbar curve. No acute compression. Grade 1 anterolisthesis L4 on L5. L1-L2: Moderate facet arthropathy. Spinal canal and foramen are patent. L2-L3: Moderate facet arthropathy. Mild RIGHT foraminal narrowing. Spinal canal is patent. L3-L4: Mild annular bulging. Moderate facet arthropathy. Mild RIGHT greater than LEFT foraminal narro wing. L4-L5: Grade 1 anterolisthesis. Mild disc bulging with slight effacement of the ventral thecal sac. M oderate facet arthropathy. RIGHT eccentric disc bulging slightly contacts the exiting RIGHT L4 nerve root with mild RIGHT foraminal narrowing. L5-S1: Spinal canal and foramen are patent. L5 is partially sacralized. Visualized pelvic bony structures: Normal. Paravertebral soft tissues: Normal. Small LEFT renal cyst. MR/MR lumbar spine wo con* [id number] IMPRESSION: 1. Mild lumbar curve. No acute compression. No high-grade central canal stenos is. 2. Grade 1 anterolisthesis L4 on L5. L5 is partially sacralized. 3. Mild annular bulging L4-5 with slight effacement of the ventral thecal sac. Small RIGHT foraminal protrusion slightly contacts the exiting RIGHT L4 nerve root. Mild RIGHT foraminal narrowing at this level. 4. Tiny RIGHT foraminal protrusion L2-3 with mild RIGHT foraminal narrowing. 5. Small RIGHT lateral foraminal protrusion L3-4 slightly contacts the exiting RIGHT L3 nerve root laterally. 6. Moderate facet arthropathy L3-L4 and L4-L5 worse at L4-L5.
== END 2024-05-13 16:38 | disposition home or self-care (01) ==
LOC: RAD 16:38
PROVIDERS: PCP Family Medicine; Visit Provider Orthopaedic Surgery
DX: M47.896 Other spondylosis, lumbar region (principal); M43.16 Spondylolisthesis, lumbar region; M51.360 Other intervertebral disc degeneration, lumbar region with discogenic back pain only; N28.1 Cyst of kidney, acquired
CPT/HCPCS: 72148

== ENCOUNTER → 2024-05-20 08:20 | Outpatient (BNVA) | payer MEDICARE, SELFPAY | PROVIDERS: PCP Family Medicine; Visit Provider Orthopaedic Surgery | DX: M54.9 Dorsalgia, unspecified (principal); Z09 Encounter for follow-up examination after completed treatment for conditions other than malignant neoplasm | CPT/HCPCS: 99214 ==

== ENCOUNTER → 2024-10-22 09:48 | Outpatient (BNVA) | payer MEDICARE, SELFPAY | PROVIDERS: PCP Family Medicine; Visit Provider Nurse Practitioner Family | DX: I10 Essential (primary) hypertension (principal); I48.91 Unspecified atrial fibrillation; Z79.01 Long term (current) use of anticoagulants; R60.9 Edema, unspecified; L56.8 Other specified acute skin changes due to ultraviolet radiation; M79.606 Pain in leg, unspecified; I73.9 Peripheral vascular disease, unspecified; E78.5 Hyperlipidemia, unspecified; Z87.891 Personal history of nicotine dependence | CPT/HCPCS: 99214 ==

== ENCOUNTER 2024-11-01 15:06 | Outpatient (CLI) | payer MEDICARE, SELFPAY ==
--- NOTE | 2024-11-01 15:30 | USR_ITS ---
PROCEDURE INFORMATION: Exam: US Duplex Bilateral Lower Extremity Arteries Exam date and time: 11/01/2024 3:15 PM Age: 69 years old Clinical indication: Pain; Leg, lower; Bilateral; Additional info: Claudication TECHNIQUE: Imaging protocol: Real-time ultrasound scan of the arteries of the bilateral lower extremities with 2-D harper scale, color Doppler flow and spectral waveform analysis. Images documented and saved. COMPARISON: No relevant prior studies available. FINDINGS: Right common femoral artery: No occlusion or significant stenosis. Normal waveform. Right superficial femoral artery: No occlusion or significant stenosis. Normal waveform. Right popliteal artery: No occlusion or significant stenosis. Normal waveform. Right calf/foot arteries: No occlusion or significant stenosis in the visualized arteries. Normal waveforms. Dorsalis pedis artery is patent. Left common femoral artery: No occlusion or significant stenosis. Normal waveform. Left superficial femoral artery: No occlusion or significant stenosis. Normal waveform. Left popliteal artery: No occlusion or significant stenosis. Normal waveform. Left calf/foot arteries: No occlusion or significant stenosis in the visualized arteries. Normal waveforms. Dorsalis pedis artery is patent. US/CV arterial duplex [facility] [id number] IMPRESSION: No stenosis or occlusion.
== END 2024-11-01 15:07 | disposition home or self-care (01) ==
PROVIDERS: PCP Family Medicine; Visit Provider Nurse Practitioner Family
DX: I73.9 Peripheral vascular disease, unspecified (principal)
CPT/HCPCS: 93925

== ENCOUNTER 2025-03-25 01:39 | Emergency (ER) | payer MEDICARE, SELFPAY ==
--- OUTSIDE RECORDS SUMMARY | 2023-11-12 05:30 | XMS_ITS ---
Author Organization [facility] Address [address] [place] [address] Care Team Providers Care Substation Technician Name Role Phone Jai CROFT, Demond Primary Care Provider Miller Vazquez Unavailable [phone] REASON FOR VISIT 2M F/U PER SIMA OV 09/19/23 TD Encounters Encounter Location Date Provider Diagnosis [facility] [address] [place] [id number] 11/12/2023 Miller Ferguson Plan Of Treatment No Information Progress Notes * Teena BRENNER ADOB:[birth year] (70 yo F)Acc No.[id number]:11/12/2023 Progress Notes Patient: Lucas luis Teena Prakash Provider: Dwain Ferguson MD :1955 A ge:68 Y S ex:Female Date:11/12/2023 Address:[address] [id number] Pcp:Demond Vergara MD Subjective: * Chief Complaints: * 2 M F/U PER SIMA OV 09/19/23 TD * Electronic signature of Manuela Ferguson MD on 03/25/2025 at 01:46 AM CDT Sign off status: Pending * Provider: Dwain Ferguson MD Date: 0 11/12/2023 Generated for Printi ng/Faxing/eTransmitting on: 0 03/25/2025 01:46 AM CDT
--- NOTE | 2025-03-25 01:43 | ECG_ITS ---
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: : [id number] Requested By: Elham Bhakta Order Number: [id number] Fiorella MD: FAM RUST Measurements Intervals [place]pin Rate: 56 P: 56 WY: 181 QRS: -12 QRSD: 96 T: 18 QT: 414 QTc: 401 Interpretive Statements SINUS BRADYCARDIA MINIMAL VOLTAGE CRITERIA FOR LVH, CONSIDER NORMAL VARIANT [MEETS CRITERIA IN ONE OF: R(aVL), S(V1), R(V5), R(V5/V6)+S(V1)] Compared to ECG 07/09/2023 17:25:09 Sinus rhythm no longer present First degree AV block no longer present ST (T wave) deviation no longer present Electronically Signed On 03-25-2025 20:10:05 CDT by FAM RUST [id number]
--- OUTSIDE RECORDS SUMMARY | 2025-03-25 01:46 | XMS_ITS | Encounter Summary ---
Author [facility] Address [address] [place] [address] Care Team Providers Care Pharmacist Critical Care Name Role Phone Zbigniew Moreno MD Primary Care Provider Unava ilable Encounter Details Date Type Department Care Team (Latest Contact Info) Description 11/17/2003 Outpatient [facility] [address] [place] [address] Gautam Vital MD NO ADDRESS ON FILE SCREENING MAMM-MAILG NEOPL-OTHER (Primary Dx) Social History Tobacco Use Types Packs/Day Years Used Date Smoking Tobacco: Never Assessed Comments Unknown Sex and Gender Information Value Date Recorded Sex Assigned at Not on file 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
--- OUTSIDE RECORDS SUMMARY | 2025-03-25 01:46 | XMS_ITS | Encounter Summary ---
Author Organization [facility] Address [address] [place] [address] Care Team Providers Care Corporate Affairs Manager Name Role Phone Zbigniew Moreno MD Primary Care Provider Unava ilable Encounter Details Date Type Department Care Team (Latest Contact Info) Description 02/28/2004 Outpatient Historical 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
--- OUTSIDE RECORDS SUMMARY | 2025-03-25 01:46 | XMS_ITS | Encounter Summary ---
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
--- OUTSIDE RECORDS SUMMARY | 2025-03-25 01:46 | XMS_ITS | Encounter Summary ---
Author Organization [facility] Address [address] [place] [address] Care Team Providers Care Door To Door Salesperson Name Role Phone Zbigniew Moreno MD Primary Care Provider Unava ilable Encounter Details Date Type Department Care Team (Late st Contact Info) Description 03/21/2009 [facility] [address] [place] [address] Zbigniew Fang, DO [address] [phone] Social History Tobacco Use Types Packs/Day Years Used Date Smoking Tobacco: Never Assessed Comments Unknown Sex and Gender Information Value Date Recorded Sex Assigned at Not on file 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
--- OUTSIDE RECORDS SUMMARY | 2025-03-25 01:46 | XMS_ITS | Encounter Summary ---
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
--- OUTSIDE RECORDS SUMMARY | 2025-03-25 01:46 | XMS_ITS | Encounter Summary ---
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
--- OUTSIDE RECORDS SUMMARY | 2025-03-25 01:46 | XMS_ITS | Encounter Summary ---
Author Organization [facility] Address [address] [place] [address] Care Team Providers Care Aircraft Delivery Checker Name Role Phone Zbigniew Moreno MD Primary Care Provider Unava ilable Encounter Details Date Type Department Care Team (Latest Contact Info) Description 11/17/2003 Outpatient Historical [facility] [address] [phone] Magdaleno Sapp MD NO ADDRESS ON FILE SCREENING MAMM-MAILG NEOPL-OTHER (Primary Dx) Social History Tobacco Use Types Packs/Day Years Used Date Smoking Tobacco: Never Assessed Comments Unknown Sex and Gender Information Value Date Recorded Sex Assigned at Not on file 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
--- OUTSIDE RECORDS SUMMARY | 2025-03-25 01:46 | XMS_ITS | Clinical Summary ---
Author Organization [facility] Address [address] [place] [address] Attn: [place] [address] Care Team Providers Care Biotech Production Specialist Name Role Phone Zbigniew Moreno MD Primary Care Provider Unava ilable Allergies Active Allergy Reactions Criticality Noted Date Comments Codeine Nausea and Vomiting Low 06/11/2011 Family History Medical History Relation Name Comments Breast Cancer Neg Hx Colon Cancer Neg Hx Ovarian Cancer Neg Hx Social History Tobacco Use Types Packs/Day Years Used Date Smoking Tobacco: Former Smokeless Tobacco: Never Alcohol Use Standard Drinks/Week Comments No 0 (1 standard drink = 0.6 oz pur e alcohol) Comments Unknown Sex and Gender Information Value Date Recorded Sex Assigned at Not on file Legal Sex Female 3:51 AM PACKER AND CARRY OUT Gender Identity Not on file Sexual Orientation Not on file Plan of Treatment Health Maintenance Due Date Last Done Comments DTAP/TDAP/TD VACCINES (1 - Tdap) 1972 FIT-DNA Q 3 years 1998 FIT/FOBT Q 1 year 1998 Flex Sig/CT Colonography Q 5 years 1998 PNEUMOCOCCAL VACCINE 50+ YEA RS (1 of 1 - PCV) 2003 ZOSTER VACCINE (1 of 2) 2003 BREAST CANCER SCREENING 06/21/2012 06/21/20 11, 05/15/2009, 04/28/2009 OSTEOPOROSIS SCREENING 2018 COLORECTAL SCREENING 06/21/2021 06/21/2011 Colorectal Cancer Screening 06/21/2021 INFLUENZA VACCINE (#1) 2025 RSV VACCINE (60+ or ) (1 - 1-dose 75+ series) 2028 Procedures Procedure Name Priority Date/Time Associated Diagnosis Comments MAMMO SCREEN BILAT W OR WO CAD Routine 06/21/2011 2:20 PM PACKER AND CARRY OUT Other screening mammogram from Last 3 Months or Most Recently Relevant to Health Maintenance Results * MAMMO SCREEN BILAT W OR WO CAD (06/21/2011 2:20 PM PACKER AND CARRY OUT) Anatomical Region Laterality Modality Breast Bilateral Other Narrative 06/24/2011 11:03 AM PACKER AND CARRY OUT Bilateral Mammogram Reason for Exam: Screening Comparison: Comparison is made with the prior exam(s) dated 04.28.09 Findings: Bilateral CC and MLO views were obtained. This examination was reviewed with the aid of a computer-aided detection system(CAD). The breast tissue density is average. No significant new findings since the prior mammogram(s). Procedure Note Hans Norwood MD - 09/11/2022 Bilateral Mammogram Reason for Exam: Screening Comparison: Comparison is made with the prior exam(s) dated1 Findings: Bilateral CC and MLO views were obtained. This examination was reviewed with the aid of a computer-aided detection system(CAD). The breast tissue density is average. No significant new findings since the prior mammogram(s). us Zbigniew Moreno MD MAMMO ORDERABLES Final Resul t from Last 3 Months or Most Recently Relevant to Health Maintenance Care Teams Biotech Production Specialist Relationship Specialty Start Date End Date Zbigniew Moreno MD NO ADDRESS ON FILE PCP - General 04/28/09
--- OUTSIDE RECORDS SUMMARY | 2025-03-25 01:46 | XMS_ITS | Encounter Summary ---
Author Organization [facility] Address [address] [place] [address] Care Team Providers Care Water Aerobics Instructor Name Role Phone Zbigniew Moreno MD Primary Care Provider Unava ilable Encounter Details Date Type Department Care Team (Latest Contact Info) Description 08/02/1998 Outpatient Historical [facility] Luigi Morales MD NO ADDRESS ON FILE Palpitations (Primary Dx) Social History Tobacco Use Types Packs/Day Years Used Date Smoking Tobacco: Never Assessed Comments Unknown Sex and Gender Information Value Date Recorded Sex Assigned at Not on file Legal Sex Female 2:42 AM FUR EXAMINER Gender Identity Not on file Sexual Orientation Not on file documented as of this encounter Plan of Treatment Not on file documented as of this encounter Visit Diagnoses Diagnosis Palpitations- Primary documented in this encounter Care Teams Water Aerobics Instructor Relationship Specialty Start Date End Date Zbigniew Moreno MD PCP - General 04/28/09 documented as of this encounter
--- OUTSIDE RECORDS SUMMARY | 2025-03-25 01:46 | XMS_ITS | Encounter Summary ---
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
--- OUTSIDE RECORDS SUMMARY | 2025-03-25 01:46 | XMS_ITS | Encounter Summary ---
Author Organization [facility] Address [address] [place] [address] Care Team Providers Care Client Service And Consulting Manager Name Role Phone Zbigniew Moreno MD Primary Care Provider Unava ilable Encounter Details Date Type Department Care Team (Latest Contact Info) Description 03/20/[address] [facility] INSTRUMENTATION ENGINEER 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
--- OUTSIDE RECORDS SUMMARY | 2025-03-25 01:46 | XMS_ITS | Encounter Summary ---
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
--- OUTSIDE RECORDS SUMMARY | 2025-03-25 01:46 | XMS_ITS | Encounter Summary ---
Author Organization [facility] Address [address] [place] [address] Care Team Providers Care Lining Layer Name Role Phone Zbigniew Moreno MD Primary Care Provider Unava ilable Encounter Details Date Type Department Care Team (Late st Contact Info) Description 03/21/2009 Ancillary Orders [facility] [address] [facility] [address] [place] [address] Zbigniew Moreno MD NO ADDRESS ON FILE Screening Mammogram Social History Tobacco Use Types Packs/Day Years Used Date Smoking Tobacco: Never Assessed Comments Unknown Sex and Gender Information Value Date Recorded Sex Assigned at Not on file Legal Sex Female 2:42 AM HEAD RIGGER Gender Identity Not on file Sexual Orientation Not on file documented as of this encounter Plan of Treatment Not on file documented as of this encounter Results * MAMMO SCREENING BILAT (04/28/2009 11:21 AM CDT) Anatomical Region Laterality Modality Breast Bilateral Mammography Impressions 04/30/2009 12:14 PM CDT : The patient needs to return for a few additional views on the left. Narrative 04/30/2009 12:14 PM CDT SCREENING MAMMOGRAM: Bilateral CC and MLO views were obtained. Comparison was made with the most recent previous study of 11/17/03. There is dense breast tissue, bilaterally. The distribution of the tissue on the right appears to be stable. On the left MLO view, inferior and posterior in location, there may be an area of overlapping parenchyma versus a developing area of distortion. The patient needs to return for a spot compression view in the MLO projection and true lateral projection for further evaluation. This mammogram was also analyzed by the Computer Aided Detection system (CAD), R2 ImageChecker, Version 3.1. Procedure Note Taty Pettit MD - 05/02/2009 SCREENING MAMMOGRAM: Bilateral CC and MLO views were obtained. Comparison was made with themost recent previous study of 11/17/03. There is dense breast tissue, bilaterally. The distribution of the tissueon the right appears to be stable. On the left MLO view, inferior and posterior in location, there may be anarea of overlapping parenchyma versus a developing area of distortion.The patient needs to return for a spot compression view in the MLOprojection and true lateral projection for further evaluation. This mammogram was also analyzed by the Computer Aided Detection system(CAD), R2 ImageMaxxAthletecker, Version 3.1. IMPRESSION: The patient needs to return for a few additional views on theleft. us Zbigniew Moreno MD MAMMO ORDERABLES Final Resul t documented in this encounter Visit Diagnoses Diagnosis Screening mammogram Other screening mammogram Screening mammogram Other screening mammogram documented in this encounter Care Teams Lining Layer Relationship Specialty Start Date End Date Zbigniew Moreno MD PCP - General 04/28/09 documented as of this encounter
--- OUTSIDE RECORDS SUMMARY | 2025-03-25 01:46 | XMS_ITS | Encounter Summary ---
Author Organization [facility] Address [address] [place] [address] Care Team Providers Care Information Support Project Manager Name Role Phone Zbigniew Moreno MD Primary Care Provider Unava ilable Encounter Details Date Type Department Care Team (Latest Contact Info) Description 07/17/1998 Outpatient Historical [facility] Kali Oreilly MD [address] [address] Excessive menstruation (Primary Dx) Social History Tobacco Use Types Packs/Day Years Used Date Smoking Tobacco: Never Assessed Comments Unknown Sex and Gender Information Value Date Recorded Sex Assigned at Not on file 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
--- OUTSIDE RECORDS SUMMARY | 2025-03-25 01:46 | XMS_ITS | Patient Health Record ---
Author Organization [facility] Address [address] [place] [address] Care Team Providers Care Vegetable Tester Name Role Phone Demond Vergara MD Primary Care Provider Miller Vazquez [phone] Allergies Allergen (clinical drug ingredient) Drug/Non Drug Allergy documented on EMR Reaction Allergy Type Onset Date Status codeine Codeine Unknown Drug Allergy Active Substance with 9-aqbxlfu-1-methylgluta ryl-coenzyme A reductase inhibitor mechanism of action (substance) Statins Unknown Drug Allergy Active Reason For Referral No Information Medications Medication SIG (Take, Route, Frequency, Duration) Notes Start Date End Date Status Chlorthalidone 25 MG Tablet 1 tablet in the morning with food Orally ONCE A DAY 09/19/2023 Active Dabigatran Etexilate Mesylate 150 MG Capsule 1 capsule Orally TWICE A DAY; Duration: 90 days 09/19/2023 Active Vitamin D 125 MCG ONCE A DAY Active Magnesium 250MG ONCE A DAY Active Co Q 10 ONCE A DAY Active Vitamin K2 100 MCG Capsule as directed Orally ONCE A DAY 09/19/2023 Active Fish Oil ONCE A DAY Active Telmisartan 80 MG Tablet 1/2 tablet Oral ly Once a day 09/19/2023 Active dilTIAZem HCl 120 MG Tablet as directed Orally ONCE A DAY 09/19/2023 Active Amiodarone HCl 200 MG Tablet 1 tablet Orally Once a day 09/19/2023 Active Social History Tobacco Use: Social History Observation Description Date Details (start date - stop date) Former Smoker NA - NA Social History Tobacco Use: Social Info Question Answer Notes Tobacco Control (Standard) Tobacco use: Former smoker How long has it been since you last smoked? Greater than 10 years Section Notes: CAFFEINE- YES ALCOHOL- NO Problems Problem Type SNOMED Code ICD Code Onset Dates Problem Status W/U Status Risk Notes Problem Essential hypertension (13997420) Essential hypertension (I10) Active confirmed Problem Hyperlipidaemia (72238013) Hyperlipemia (E78.5) Active confirmed Problem Atrial fibrillation (87614806) Atrial fibrillation, unspecified type (I48.91) Active confirmed Problem Atrial fibrillation (15592157) Afib (I48.91) Active confirmed Problem Statin not tolerated (753319224) Statin intolerance (Z78.9) Active confirmed Problem Palpitations (47537016) Palpitation (R00.2) Active confirmed Problem Chronic kidney disease (134145683) CKD (chronic kidney disease) (N18.9) Active confirmed Encounters Encounter Location Date Provider Diagnosis [facility] [address] [place] [phone] 10/18/2024 Miller Ferguson Plan Of Treatment No Information Insurance Providers Payer Name Payer Address Payer Phone Subscriber Number Group Number Insured Name Patient Relationship to Insured Coverage Start Date Coverage End Date [place] Re[place] [address] [place] [phone] [id number] Teena Brenner Self - patient is the insured [place] Medicare [address] [place] [phone] [id number] Teena Brenner Self - patient is the insured Medical (General) History Medical History History ICD Code HX OF AFIB AND frequent PVCS HTN HIGH CHOLESTEROL Surgical History Surgery Date(Month/Year) [place]STERECTOMY [place] IN [place]- CARDIAC ABLATION 201 5 Hospitalization History Reason Date(Month/Year) [facility]- ER- PVC S 07/09
--- OUTSIDE RECORDS SUMMARY | 2025-03-25 01:46 | XMS_ITS | Encounter Summary ---
Author Organization [facility] Address [address] [place] [address] Care Team Providers Care Critical Care Nurse Specialist Name Role Phone Zbigniew Moreno MD Primary Care Provider Unava ilable Encounter Details Date Type Department Care Team (Latest Contact Info) Description 07/19/1998 Outpatient Historical [facility] Gautam Vital MD NO ADDRESS ON FILE Preoperative examination, unspecified (Primary Dx) Social History Tobacco Use Types Packs/Day Years Used Date Smoking Tobacco: Never Assessed Comments Unknown Sex and Gender Information Value Date Recorded Sex Assigned at Not on file Legal Sex Female 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
--- OUTSIDE RECORDS SUMMARY | 2025-03-25 01:46 | XMS_ITS | Encounter Summary ---
Author Organization [facility] Address [address] [place] [address] Care Team Providers Care Electronics Mechanic Name Role Phone Zbigniew Moreno MD Primary Care Provider Unava ilable Encounter Details Date Type Department Care Team (Latest Contact Info) Description 08/30/2002 Outpatient 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
--- OUTSIDE RECORDS SUMMARY | 2025-03-25 01:46 | XMS_ITS | Encounter Summary ---
Author Organization [facility] Address [address] [place] [address] Care Team Providers Care Occupational Therapy Aide Name Role Phone Zbigniew Moreno MD Primary Care Provider Unava ilable Encounter Details Date Type Department Care Team (Latest Contact Info) Description 10/25/1998 Outpatient Historical [facility] Gautam Vital MD NO ADDRESS ON FILE Follow-up examination following surgery (Primary Dx) Social History Tobacco Use Types Packs/Day Years Used Date Smoking Tobacco: Never Assessed Comments Unknown Sex and Gender Information Value Date Recorded Sex Assigned at Not on file Legal Sex Female 2:42 AM 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
--- OUTSIDE RECORDS SUMMARY | 2025-03-25 01:46 | XMS_ITS | Encounter Summary ---
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
--- OUTSIDE RECORDS SUMMARY | 2025-03-25 01:46 | XMS_ITS | Encounter Summary ---
Author Organization [facility] Address [address] [place] [address] Care Team Providers Care Collection Systems Modeler Name Role Phone Zbigniew Moreno MD Primary Care Provider Unava ilable Encounter Details Date Type Department Care Team (Latest Contact Info) Description 02/28/2004 Outpatient Historical [facility] TARGET MAN 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
--- OUTSIDE RECORDS SUMMARY | 2025-03-25 01:46 | XMS_ITS | Encounter Summary ---
Author Organization [facility] Address [address] [place] [address] Attn: [place] [id number] Care Team Providers Care [employer] Advisor Name Role Phone Zbigniew Moreno MD Primary Care Provider Unava ilable Encounter Details Date Type Department Care Team (Late st Contact Info) Description 11/26/2001 Outpatient Historical Deangelo Mccarty MD [address] [facility] [address] [place] [address] Social History Tobacco Use Types Packs/Day Years Used Date Smoking Tobacco: Never Assessed Comments Unknown Sex and Gender Information Value Date Recorded Sex Assigned at Not on file Legal Sex Female 2:42 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
--- OUTSIDE RECORDS SUMMARY | 2025-03-25 01:46 | XMS_ITS | Encounter Summary ---
Author Organization [facility] Address [address] [place] [address] Attn: [place] [address] Care Team Providers Care Brand Recorder Name Role Phone Zbigniew Moreno MD Primary Care Provider Unava ilable Encounter Details Date Type Department Care Team (Late st Contact Info) Description 10/22/2000 Outpatient Historical Lior Santos MD [address] [place] [phone] Social History Tobacco Use Types Packs/Day Years Used Date Smoking Tobacco: Never Assessed Comments Unknown Sex and Gender Information Value Date Recorded Sex Assigned at Not on file Legal Sex Female 2:42 AM STITCHDOWNS TOE FORMER Gender Identity Not on file Sexual Orientation Not on file documented as of this encounter Plan of Treatment Not on file documented as of this encounter Visit Diagnoses Not on filedocumented in this encounter Care Teams Brand Recorder Relationship Specialty Start Date End Date Zbigniew Moreno MD PCP - General 04/28/09 documented as of this encounter
--- OUTSIDE RECORDS SUMMARY | 2025-03-25 01:46 | XMS_ITS | Encounter Summary ---
Author Organization [facility] Address [address] [place] [address] Care Team Providers Care Director Of Financial Reporting Name Role Phone Zbigniew Moreno MD Primary Care Provider Unava ilable Encounter Details Date Type Department Care Team (Latest Contact Info) Description 09/24/1999 Outpatient Historical [facility] MERCHANDISING SPECIALIST [address] [place] [phone] Gautam Vital MD NO ADDRESS ON FILE Gynecologic examination (Primary Dx) Social History Tobacco Use Types Packs/Day Years Used Date Smoking Tobacco: Never Assessed Comments Unknown Sex and Gender Information Value Date Recorded Sex Assigned at Not on file Legal Sex Female 2:42 AM RING SORTER Gender Identity Not on file Sexual Orientation Not on file documented as of this encounter Plan of Treatment Not on file documented as of this encounter Visit Diagnoses Diagnosis Gynecologic examination- Primary Gynecological examination documented in this encounter Care Teams Director Of Financial Reporting Relationship Specialty Start Date End Date Zbigniew Moreno MD PCP - General 04/28/09 documented as of this encounter
--- OUTSIDE RECORDS SUMMARY | 2025-03-25 01:46 | XMS_ITS | Encounter Summary ---
Author Organization [facility] Address [address] [place] [address] Care Team Providers Care Justice Professor Name Role Phone Zbigniew Moreno MD Primary Care Provider Unava ilable Encounter Details Date Type Department Care Team (Late st Contact Info) Description 03/07/1999 Outpatient Historical [facility] [address] [facility] [address] [place] [phone] Taty Pettit MD NO ADDRESS ON FILE Lump or mass in breast (Primary Dx) Social History Tobacco Use Types Packs/Day Years Used Date Smoking Tobacco: Never Assessed Comments Unknown Sex and Gender Information Value Date Recorded Sex Assigned at Not on file 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
--- OUTSIDE RECORDS SUMMARY | 2025-03-25 01:46 | XMS_ITS | Encounter Summary ---
Author Organization [facility] Address [address] [place] [address] Care Team Providers Care Phthalic Acid Purifier Name Role Phone Zbigniew Moreno MD Primary Care Provider Unava ilable Encounter Details Date Type Department Care Team (Latest Contact Info) Description 09/05/1998 Outpatient Historical [facility] Gautam Vital MD NO ADDRESS ON FILE Other disorder of menstruation and other abnormal bleeding from female genital tract (Primary Dx) Social History Tobacco Use Types Packs/Day Years Used Date Smoking Tobacco: Never Assessed Comments Unknown Sex and Gender Information Value Date Recorded Sex Assigned at Not on file 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
--- OUTSIDE RECORDS SUMMARY | 2025-03-25 01:46 | XMS_ITS | Encounter Summary ---
Author Organization [facility] Address [address] [place] [address] Care Team Providers Care Freelance Writer Name Role Phone Zbigniew Moreno MD Primary Care Provider Unava ilable Encounter Details Date Type Department Care Team (Latest Contact Info) Description 03/16/[address] 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
--- OUTSIDE RECORDS SUMMARY | 2025-03-25 01:46 | XMS_ITS | Encounter Summary ---
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
--- OUTSIDE RECORDS SUMMARY | 2025-03-25 01:46 | XMS_ITS | Encounter Summary ---
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
--- OUTSIDE RECORDS SUMMARY | 2025-03-25 01:46 | XMS_ITS | Encounter Summary ---
Author Organization [facility] Address [address] [place] [address] Care Team Providers Care Hardwood Floor Layer Name Role Phone Zbigniew Moreno MD Primary Care Provider Unava ilable Encounter Details Date Type Department Care Team (Latest Contact Info) Description 04/03/2004 Outpatient Historical [facility] [address] [place] [address] Zbigniew Fang, DO [address] [address] HYPERTENSION NOS (Primary Dx); HYPERLIPIDEMIA NEC/NOS Social History Tobacco Use Types Packs/Day Years Used Date Smoking Tobacco: Never Assessed Comments Unknown Sex and Gender Information Value Date Recorded Sex Assigned at Not on file 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
--- OUTSIDE RECORDS SUMMARY | 2025-03-25 01:46 | XMS_ITS | Encounter Summary ---
Author Organization [facility] Address [address] [place] [address] Care Team Providers Care Embedded Systems Developer Name Role Phone Zbigniew Moreno MD Primary Care Provider Unava ilable Encounter Details Date Type Department Care Team (Latest Contact Info) Description 03/20/2004 Outpatient Historical [facility] [address] [phone] Gautam Vital MD NO ADDRESS ON FILE BONE & CARTILAGE DIS NOS (Primary Dx) Social History Tobacco Use Types Packs/Day Years Used Date Smoking Tobacco: Never Assessed Comments Unknown Sex and Gender Information Value Date Recorded Sex Assigned at Not on file 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
--- OUTSIDE RECORDS SUMMARY | 2025-03-25 01:47 | XMS_ITS | Encounter Summary ---
Author Organization [facility] Address [address] [place] [address] Care Team Providers Care Sales Promotion Representative Name Role Phone Zbigniew Moreno MD Primary Care Provider Unava ilable Encounter Details Date Type Department Care Team (Latest Contact Info) Description 11/18/2001 Outpatient Historical [facility] [address] [facility] [address] [place] [phone] Deanne Aguilar MD NO ADDRESS ON FILE SCREENING MAMM-MAILG NEOPL-OTHER (Primary Dx) Social History Tobacco Use Types Packs/Day Years Used Date Smoking Tobacco: Never Assessed Comments Unknown Sex and Gender Information Value Date Recorded Sex Assigned at Not on file 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
--- OUTSIDE RECORDS SUMMARY | 2025-03-25 01:47 | XMS_ITS | Encounter Summary ---
Author Organization [facility] Address [address] [place] [address] Care Team Providers Care Proctologist Name Role Phone Zbigniew Moreno MD Primary Care Provider Unava ilable Encounter Details Date Type Department Care Team (Latest Contact Info) Description 11/26/2001 Outpatient Historical [facility] Gastroenterology- [place] [address] [place] [phone] Deangelo Mccarty MD [address] [facility] [address] [place] [phone] Diverticulitis of colon (Primary Dx); ABDOMINAL PAIN LLQ Social History Tobacco Use Types Packs/Day Years Used Date Smoking Tobacco: Never Assessed Comments Unknown Sex and Gender Information Value Date Recorded Sex Assigned at Not on file 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
--- OUTSIDE RECORDS SUMMARY | 2025-03-25 01:47 | XMS_ITS | Encounter Summary ---
Author Organization [facility] Address [address] [place] [address] Care Team Providers Care Global Chief Experience Officer Name Role Phone Zbigniew Moreno MD Primary Care Provider Unava ilable Encounter Details Date Type Department Care Team (Latest Contact Info) Description 11/18/2001 [facility]patient [facility] [address] [place] [phone] Deangelo Mccarty MD [address] [facility] [address] [place] [phone] ABDOMINAL PAIN LLQ (Primary Dx) Social History Tobacco Use Types Packs/Day Years Used Date Smoking Tobacco: Never Assessed Comments Unknown Sex and Gender Information Value Date Recorded Sex Assigned at Not on file 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
--- OUTSIDE RECORDS SUMMARY | 2025-03-25 01:47 | XMS_ITS | Encounter Summary ---
Author Organization [facility] Address [address] [place] [address] Care Team Providers Care Health Benefits Specialist Name Role Phone Zbigniew Moreno MD Primary Care Provider Unava ilable Encounter Details Date Type Department Care Team (Latest Contact Info) Description 05/04/2009 Ancillary Orders [facility] [address] [facility] [address] [place] [address] Zbigniew Moreno MD NO ADDRESS ON FILE Other (Abnormal) Findings on Radiological Examination of Breast Social History Tobacco Use Types Packs/Day Years Used Date Smoking Tobacco: Never Assessed Comments Unknown Sex and Gender Information Value Date Recorded Sex Assigned at Not on file Legal Sex Female 2:42 AM REGIONAL GEODETIC ADVISOR Gender Identity Not on file Sexual Orientation Not on file documented as of this encounter Plan of Treatment Not on file documented as of this encounter Results * MAMMO UNILATERAL DIAG LEFT (05/15/2009 1:44 PM REGIONAL GEODETIC ADVISOR) Anatomical Region Laterality Modality Breast Left Mammography Narrative 05/15/2009 2:35 PM REGIONAL GEODETIC ADVISOR UNILATERAL DIAGNOSTIC MAMMOGRAM - LEFT BREAST: The patient returns for further evaluation of a questionable area of distortion posterior inferior left breast. With additional imaging, the region of interest resolves into normal-appearing fibroglandular tissue. Prior findings attributed to summation densities of normal tissue. The patient received a result/recommendation letter. SUMMARY: Additional workup on the left is negative. She can return to bilateral screening in one year's time. This was discussed with the patient. Procedure Note Hans Norwood MD - 05/17/2009 UNILATERAL DIAGNOSTIC MAMMOGRAM - LEFT BREAST: The patient returns for further evaluation of a questionable area ofdistortion posterior inferior left breast. With additional imaging, the region of interest resolves intonormal-appearing fibroglandular tissue. Prior findings attributed tosummation densities of normal tissue. The patient received a result/recommendation letter. SUMMARY: Additional workup on the left is negative. She can return tobilateral screening in one year's time. This was discussed with thepatient. Zbigniew Moreno MD MAMMO ORDERABLES Final Resul t documented in this encounter Visit Diagnoses Diagnosis Other (abnormal) findings on radiological examination of breast Other (abnormal) findings on radiological examination of breast documented in this encounter Care Teams Health Benefits Specialist Relationship Specialty Start Date End Date Zbigniew Moreno MD PCP - General 04/28/09 documented as of this encounter
--- OUTSIDE RECORDS SUMMARY | 2025-03-25 01:47 | XMS_ITS | Encounter Summary ---
Author Organization [facility] Address [address] [place] [address] Care Team Providers Care Protector Plate Attacher Name Role Phone Zbigniew Moreno MD Primary Care Provider Unava ilable Encounter Details Date Type Department Care Team (Late st Contact Info) Description 10/22/2000 Outpatient Historical [facility] Dermatology- 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
--- OUTSIDE RECORDS SUMMARY | 2025-03-25 01:47 | XMS_ITS | Clinical Summary ---
Author Organization [facility] Address [address] [place] [address] Phone Care Team Providers Care Per Diem Name Role Phone Zbigniew Moreno MD Primary Care Provider Unava ilable Allergies Active Allergy Reactions Criticality Noted Date Comments Codeine Nausea and Vomiting Low 06/11/2011 Medications dronedarone (MULTAQ) 400 mg Oral Tab Take 400 mg by mouth 2 times daily with meals. Active simvastatin (ZOCOR) 20 mg Oral tablet Take 20 mg by mouth Daily LATE. Active aspirin (IGNACIO) 81 mg Oral Tab Take 325 mg by mouth daily. Active OMEGA-3 FATTY ACIDS (FISH OIL ORAL) Take by mouth daily. Active multivitamin (DAILY-DEION) Oral tablet Take 1 Tab by mouth daily. Active calcium carbonate (CALTRATE) 600 mg (1,500 mg) Oral Tab Take 600 mg by mouth daily. 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 OPERATOR Gender Identity Not on file Sexual Orientation Not on file Occupation Industry Job Start Date Job End Date Not on file Not on file Not on file Not on file Last Filed Vital Signs Vital Sign Reading Time Taken Comments Blood Pressure 111/73 06/21/2011 9:05 AM MITER OPERATOR Pulse 81 06/21/2011 9:05 AM MITER OPERATOR Temperature 36.6 C (97.8 F) 06/21/2011 7:52 AM MITER OPERATOR Respiratory Rate 18 06/21/2011 9:05 AM MITER OPERATOR Oxygen Saturation 97% 06/21/2011 9:05 AM MITER OPERATOR Inhaled Oxygen Concentration - - Weight 68 kg (150 lb) 06/11/2011 3:56 PM MITER OPERATOR Height 155.6 cm (5' 1.25 ) 06/11/2011 3:56 PM CS T Body Mass Index 28.11 06/11/2011 3:56 PM MITER OPERATOR Plan of Treatment Health Maintenance Due Date Last Done Comments DTAP/TDAP/TD VACCINES (1 - Tdap) 1972 FIT-DNA Q 3 years 1998 Flex Sig/CT Colonography Q 5 years 1998 PNEUMOCOCCAL VACCINE 50+ YEA RS (1 of 1 - PCV) 2003 ZOSTER VACCINE (1 of 2) 2003 FIT/FOBT Q 1 year 02/27/2005 02/28/2004, 10/22/2000 BREAST CANCER SCREENING 06/21/2012 06/21/20 11, 05/15/2009, 04/28/2009 OSTEOPOROSIS SCREENING 2018 COLORECTAL SCREENING 06/21/2021 06/21/2011, 06/21/2011, 11/26/2001 Colorectal Cancer Screening 06/21/2021 INFLUENZA VACCINE (#1) 2025 RSV VACCINE (60+ or ) (1 - 1-dose 75+ series) 2028 Procedures Procedure Name Priority Date/Time Associated Diagnosis Comments MAMMO SCREEN BILAT W OR WO CAD Routine 06/21/2011 2:20 PM MITER OPERATOR Other screening mammogram ENDOSCOPY, COLON, SCREENING Routine 06/21/2011 7:44 AM MITER OPERATOR Special screening for malignant neoplasms, colon from Last 3 Months or Most Recently Relevant to Health Maintenance Results * MAMMO DIGITAL SCREEN BILAT (06/21/2011 2:20 PM MITER OPERATOR) Anatomical Region Laterality Modality Breast Bilateral Mammography Narrative 06/24/2011 11:06 AM MITER OPERATOR Bilateral Mammogram Reason for Exam: Screening Comparison: Comparison is made with the prior exam(s) dated 04.28.09 Findings: Bilateral CC and MLO views were obtained. This examination was reviewed with the aid of a computer-aided detection system(CAD). The breast tissue density is average. No significant new findings since the prior mammogram(s). Procedure Note Hans Norwood MD - 06/24/2011 Bilateral Mammogram Reason for Exam: Screening Comparison: Comparison is made with the prior exam(s) date04.28.09 Findings: Bilateral CC and MLO views were obtained. This examination was reviewed with the aid of a computer-aided detectionsystem(CAD). The breast tissue density is average. No significant new findings since the prior mammogram(s). Zbigniew Moreno MD MAMMO ORDERABLES Final Resul t from Last 3 Months or Most Recently Relevant to Health Maintenance Insurance Advance Directives For more information, please contact: [phone] * Full Code (Latest Code Status on File) Date Activated Date Inactivated Comments 06/21/2011 7:45 AM 06/21/2011 11:20 AM Care Teams Per Diem Relationship Specialty Start Date End Date Zbigniew Moreno MD PCP - General 04/28/09
--- OUTSIDE RECORDS SUMMARY | 2025-03-25 01:47 | XMS_ITS | Encounter Summary ---
Author Organization [facility] Address [address] [place] [address] Care Team Providers Care Night Warehouse Selector Name Role Phone Zbigniew Moreno MD Primary Care Provider Unava ilable Encounter Details Date Type Department Care Team (Latest Contact Info) Description 10/22/2000 [facility] 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
--- OUTSIDE RECORDS SUMMARY | 2025-03-25 01:47 | XMS_ITS | Encounter Summary ---
Author Organization [facility] Address [address] [place] [address] Care Team Providers Care Stripping And Booking Machine Operator Name Role Phone Zbigniew Moreno MD Primary Care Provider Unava ilable Reason for Referral * Outpatient Services (Routine) - Closed Specialty Diagnoses / Procedures Referred By Contac t Referred To Contact Diagnoses Other screening mammogram Procedures MAMMO DIGITAL SCREEN BILAT Zbigniew Moreno MD NO ADDRESS ON FILE Referral ID Status Reason Start Date Expiration Date V isits Requested Visits Authorized [id number] Closed [facility] TO SCHEDULE ([facility]) 05/13/2011 05/12/2012 1 1 Encounter Details Date Type Department Care Team (Latest Contact Info) Description 05/13/2011 Ancillary Orders [facility] Pre-Registration [place] CALL TO MAKE APPOINTMENT ONLY [address] [place] [address] Zbigniew Moreno MD NO ADDRESS ON FILE Other screening mammogram Social History Tobacco Use Types Packs/Day Years Used Date Smoking Tobacco: Never Assessed Comments Unknown Sex and Gender Information Value Date Recorded Sex Assigned at Not on file Legal Sex Female 2:42 AM LAUNDRY HELPER Gender Identity Not on file Sexual Orientation Not on file documented as of this encounter Plan of Treatment Not on file documented as of this encounter Results * MAMMO DIGITAL SCREEN BILAT (06/21/2011 2:20 PM LAUNDRY HELPER) Anatomical Region Laterality Modality Breast Bilateral Mammography Narrative 06/24/2011 11:06 AM LAUNDRY HELPER Bilateral Mammogram Reason for Exam: Screening Comparison: [...] in this encounter Visit Diagnoses Diagnosis Other screening mammogram Other screening mammogram documented in this encounter Care Teams Stripping And Booking Machine Operator Relationship Specialty Start Date End Date Zbigniew Moreno MD PCP - General 04/28/09 documented as of this encounter
--- OUTSIDE RECORDS SUMMARY | 2025-03-25 01:47 | XMS_ITS | Encounter Summary ---
Author Organization [facility] Address [address] [place] [address] Care Team Providers Care Oil Developer Name Role Phone Zbigniew Moreno MD Primary Care Provider Unava ilable Encounter Details Date Type Department Care Team (Latest Contact Info) Description 10/22/[address] 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
--- OUTSIDE RECORDS SUMMARY | 2025-03-25 01:47 | XMS_ITS | Encounter Summary ---
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
[2025-03-25 01:52] VITALS: BP 233/85; PULSE 56; RESP 16; TEMP 36.6; O2SAT 100; BMI 30.2
--- NOTE | 2025-03-25 01:53 | W.ED.CHESTPA ---
HPI - Chest Pain General: Chief Complaint: Chest Pain Stated Complaint: Chest Pain, High BP, pressure Time Seen by Provider: 03/25/25 01:42 Source: patient Mode of arrival: ambulatory Limitations: no limitations History of Present Illness: 70-year-old female states she has been having hypertension at night she states for years. She states that her blood pressure was elevated tonight and did take her metoprolol at home. States continued be high she had some mild she states ache in her chest denies any severe chest pain she denies any shortness of breath denies any nausea denies any worse improved factors. Associated symptoms: Deny abdominal pain, dyspnea, fever(s), nausea or vomiting Related Data Home Medications ?Medication ?Instructions ?Recorded ?Confirmed magnesium oxide 250 mg PO DAILY 12/08/19 10/22/24 coenzyme Q10 100 mg capsule (Co 100 mg PO DAILY 12/03/21 10/22/24 Q-10) cholecalciferol (vitamin D3) 125 125 mcg PO DAILY 10/10/23 10/22/24 mcg (5,000 unit) capsule vitamin K2 90 mcg capsule 90 mcg PO DAILY 10/10/23 10/22/24 amiodarone 200 mg tablet 100 mg PO DAILY 10/22/24 10/22/24 Previous Rx's ?Medication ?Instructions ?Recorded diltiazem HCl 120 mg 120 mg PO BID #180 caps 04/13/24 capsule,extended release 24 hr (Cardizem CD) ondansetron HCl 4 mg tablet 4 mg PO Q8H #30 tabs 04/20/24 dabigatran etexilate 150 mg 150 mg PO BID #180 caps 10/19/24 capsule (Pradaxa) chlorthalidone 25 mg tablet 12.5 mg (1/2 x 25 mg) PO DAILY #45 10/22/24 tabs metoprolol succinate 25 mg 25 mg PO DAILY #90 tabs 10/22/24 tablet,extended release 24 hr Allergies Allergy/AdvReac Type Severity Reaction Status Date / Time [id number] Reductase Allergy Unknown Unknown Verified 10/22/24 10:07 Inhibitor codeine AdvReac Mild ADR-Vomitin Verified 10/22/24 10:07 g Review of Systems Const: Denies: fever(s), chills, body aches or change in appetite ENMT: Denies: throat pain or dental pain Card: Reports: chest pain Resp: Denies: dyspnea GI: Denies: abdominal pain, nausea, vomiting or diarrhea Musc: Denies: neck pain or back pain Skin/Breast: Denies: rash Neuro: Denies: headache(s) PFSH ED PFSH: Medical History GERD (gastroesophageal reflux disease) Diverticulitis Hemorrhoids Dysphagia GERD (gastroesophageal reflux disease) HTN (hypertension) Atrial fibrillation Dyslipidemia Surgical History History of salpingo-oophorectomy S/P hysterectomy Status post catheter ablation of atrial fibrillation 2014 Family History Father CAD (coronary artery disease) S/P CABG (coronary artery bypass graft) Sister Cancer Other Diabetes Stroke Social History Smoking and tobacco/nicotine status: former use of tobacco/nicotine Alcohol intake: current Alcohol intake frequency: holidays/special occasions only Alcohol type: wine Household members: spouse Marital status: Physical Exam Const: COMMON NORMALS: no acute distress, patient oriented x3 and healthy appearing HENMT: COMMON NORMALS: normocephalic and atraumatic HEAD & SCALP: normocephalic and atraumatic Eye: COMMON NORMALS: conjunctivae normal CONJUNCTIVA: Yes conjunctivae normal Neck/C-Spine: COMMON NORMALS: full ROM and supple Chest: COMMONS NORMALS: normal inspection of the chest Resp: COMMON NORMALS: normal respiratory effort, No retractions, No use of accessory muscles and clear to auscultation bilaterally AUSCULTATION: clear to auscultation bilaterally Cardio: COMMON NORMALS: regular rate, regular rhythm and No murmurs present (Cardio) RATE: regular rate RHYTHM: regular rhythm GI: COMMON NORMALS: Normal to inspection, nondistended, normoactive bowel sounds present, Soft to palpation, non-tender and no masses PALPATION: Yes Soft to palpation Extremity: COMMON NORMALS: normal to inspection and full ROM Neuro: COMMON NORMALS: patient oriented x3, moves all extremities and no focal motor deficits Psych: COMMON NORMALS: mental status grossly normal, Normal thought process present and cooperative THOUGHT PROCESS: Normal thought process present Skin: COMMON NORMALS: no rashes or lesions noted and no wounds GENERAL SKIN EXAM: no rashes or lesions noted Course Vital Signs: Vital signs: Vital Signs Temperature 97.9 F 03/25/25 01:56 Pulse Rate 74 03/25/25 03:11 Respiratory Rate 14 03/25/25 03:11 Blood Pressure 143/61 03/25/25 03:11 Pulse Oximetry 99 03/25/25 03:11 Oxygen Delivery Me thod Room Air 03/25/25 03:11 MDM - Chest Pain Medical Decision Making Patient presents with hypertension that is improved she is also having some chest pain but mild in nature she is chest pain-free currently initial repeat troponin are normal no signs of dissection no signs of acute coronary syndrome she stable for discharge follow-up with PCP return if worsening. Medical Records I reviewed the patient's medical records. Lab Data I reviewed the patient's lab results. 03/25/25 01:59 03/25/25 01:59 Laboratory Results WBC 7.45 10^3/uL (3.29-11.43) 03/25/25 01:59 RBC 4.89 10^6/uL (3.85-5.65) 03/25/25 01:59 Hgb 14.50 g/dL (11.27-16.99) 03/25/25 01:59 Hct 43.2 % (36-47) 03/25/25 01:59 MCV 88.3 fl (85-98) 03/25/25 01:59 MCH 29.7 pg (27-33) 03/25/25 01:59 MCHC 33.6 g/dL (30-55) 03/25/25 01:59 RDW 13.5 % (12.1-15.1) 03/25/25 01:59 Plt Count 279 10^3/cmm (157-399) 03/25/25 01:59 MPV 9.7 fL (7.4-10.4) 03/25/25 01:59 Neut % (Auto) 33.7 % 03/25/25 01:59 Lymph % (Auto) 49.4 % 03/25/25 01:59 [place] % (Auto) 11.1 % 03/25/25 01:59 Eos % (Auto) 4.6 % 03/25/25 01:59 Baso % (Auto) 0.9 % 03/25/25 01:59 Neut # (Auto) 2.51 10^3/uL (1.8-7.7) 03/25/25 01:59 Lymph # (Auto) 3.7 10^3/uL (0.8-4.8) 03/25/25 01:59 [place] # (Auto) 0.8 10^3/uL (0.2-0.9) 03/25/25 01:59 Eos # (Auto) 0.3 10^3/uL (0.0-0.8) 03/25/25 01:59 Baso # (Auto) 0.1 10^3/uL (0.0-0.1) 03/25/25 01:59 Nucleated RBC % (auto) 0 % 03/25/25 01:59 Nucleated RBCs # 0.0 /100WBC 03/25/25 01:59 Sodium 141 mmol/L (136-145) 03/25/25 01:59 Potassium 3.9 mmol/L (3.5-5.1) 03/25/25 01:59 Chloride 102 mmol/L (98-107) 03/25/25 01:59 Carbon Dioxide 25 mmol/L (22-29) 03/25/25 01:59 Anion Gap 17.9 (5-19) 03/25/25 01:59 BUN 19 mg/dL (8-23) 03/25/25 01:59 Creatinine 0.9 mg/dL (0.5-0.9) 03/25/25 01:59 GFR Calculation Not Reportable 03/25/25 01:59 Glucose 98 mg/dL (65-115) 03/25/25 01:59 Calculated Osmolality 294 mOsm/kg (285-295) 03/25/25 01:59 Calcium 9.6 mg/dL (8.5-10.5) 03/25/25 01:59 Total Bilirubin 0.3 mg/dL (0.15-1.2) 03/25/25 01:59 AST 19 U/L (0-32) 03/25/25 01:59 ALT 19 U/L (0-33) 03/25/25 01:59 Alkaline Phosphatase 73 U/L (35-105) 03/25/25 01:59 Troponin T Baseline 10 ng/L (0-10) 03/25/25 01:59 Delta Troponin T 1.74 ABS# (0-10) 03/25/25 03:40 Total Protein 7.2 g/dL (6.6-8.7) 03/25/25 01:59 Albumin 4.7 g/dL (3.5-5.2) 03/25/25 01:59 Globulin 2.5 g/dL (1.3-4.6) 03/25/25 01:59 Lipase 27 U/L (13-60) 03/25/25 01:59 All radiology interpretation(s) finalized by discharge EKG Data EKG 1: I personally reviewed and interpreted this EKG as follows: EKG interpretation date: 03/25/25 EKG interpretation time: 01:45 Interpretation: sinus missy hr [address] elevation qrs 96 qtc 405 EKG 2: I personally reviewed and interpreted this EKG as follows: EKG interpretation date: 03/25/25 EKG interpretation time: 03:48 Interpretation: nsr hr [address] elevation qrs 95 qtc 431 Clincial Decision Support The following clinical decision support tools were used to aid in care of the patient HEART Score -> History: Slightly Suspicous, EKG: Normal, Age: Less than 45 yrs, Risk Factors: No Risk Factors Known, Troponin: Baseline Trop <16 ng/L. Resulting HEART Score: 0. Discharge Plan Discharge Patient Disposition: Home Clinical Impression: Chest pain HTN (hypertension) Qualifiers: Hypertension type: primary hypertension Qualified Code(s): I10 - Essential (primary) hypertension Condition: Stable Prescriptions: No Action magnesium oxide 400 mg magnesium tablet 250 mg PO DAILY coenzyme Q10 [Co Q-10] 100 mg capsule 100 mg PO DAILY Cardizem CD 120 mg capsule,extended release 24hr 120 mg PO BID Qty: 180 3RF amiodarone 200 mg tablet 100 mg PO DAILY chlorthalidone 25 mg tablet 12.5 mg PO DAILY Qty: 45 1RF metoprolol succinate 25 mg tablet extended release 24 hr 25 mg PO DAILY Qty: 90 1RF cholecalciferol (vitamin D3) 125 mcg (5,000 unit) capsule 125 mcg PO DAILY vitamin K2 90 mcg capsule 90 mcg PO DAILY Pradaxa 150 mg capsule 150 mg PO BID Qty: 180 3RF ondansetron HCl 4 mg tablet 4 mg PO Q8H Qty: 30 0RF Discharge Orders: Discharge ED (Routine); Ordered 03/25/25 Ordered By: Elham Bhakta Referrals: Demond Vergara MD [Primary Care Provider, Family Practice] Discharge Diet: Advance as tolerated Discharge Activity: Resume usual activity Patient Instructions: Chest Pain (ED), Hypertension (ED) Print Language: Uruguayan Coding Level of Care Code ED Industrial Maintenance 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
[2025-03-25 01:56] VITALS: BP 233/85; PULSE 56; RESP 16; TEMP 36.6; O2SAT 100
[2025-03-25] MEDS: hyDRALAzine 20 mg/mL INJ 1 mL 10 MG IVP ×2 (02:00→02:45)
[2025-03-25 02:05] LABS: Hematocrit 43.2 % (36-47); Hemoglobin 14.50 g/dL (11.27-16.99); Mean Corpuscular HGB Conc 33.6 g/dL (30-55); Mean Corpuscular Hemoglobin 29.7 pg (27-33); Mean Corpuscular Volume 88.3 fl (85-98); Nucleated Red Blood Cells % 0 %; Platelet Count 279 10^3/cmm (157-399); Red Blood Count 4.89 10^6/uL (3.85-5.65); White Blood Count 7.45 10^3/uL (3.29-11.43)
[2025-03-25 02:22] LABS: Troponin(5th) Baseline 10 ng/L (0-10)
[2025-03-25 02:23] VITALS: BP 179/74; PULSE 70; RESP 18; O2SAT 94
[2025-03-25 02:25] LABS: Alanine Aminotransferase 19 U/L (0-33); Albumin Level 4.7 g/dL (3.5-5.2); Alkaline Phosphatase 73 U/L (35-105); Anion Gap 17.9 (5-19); Aspartate Amino Transferase 19 U/L (0-32); Blood Urea Nitrogen 19 mg/dL (8-23); Calcium 9.6 mg/dL (8.5-10.5); Carbon Dioxide 25 mmol/L (22-29); Chloride 102 mmol/L (98-107); Creatinine Clr Calc Pharmacy 51.4759; Globulin 2.5 g/dL (1.3-4.6); Glucose 98 mg/dL (65-115); Lipase 27 U/L (13-60); Osmolality Calculated 294 mOsm/kg (285-295); Potassium 3.9 mmol/L (3.5-5.1); Sodium 141 mmol/L (136-145); Total Protein 7.2 g/dL (6.6-8.7)
[2025-03-25 03:11] VITALS: BP 143/61; PULSE 74; RESP 14; O2SAT 99
--- NOTE | 2025-03-25 03:48 | ECG_ITS ---
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
[2025-03-25 04:04] LABS: Troponin 5 2HR 11.74 ng/L (0-10); Troponin 5 2HR Delta 1.74 ABS# (0-10)
[2025-03-25 04:08] VITALS: BP 148/62; PULSE 72; RESP 16; O2SAT 99
== END 2025-03-25 04:18 | disposition home or self-care (01) ==
PROVIDERS: Emergency Provider Emergency Medicine; PCP Family Medicine
DX: R07.9 Chest pain, unspecified (principal); I10 Essential (primary) hypertension; Z87.891 Personal history of nicotine dependence; E78.5 Hyperlipidemia, unspecified
CPT/HCPCS: 36415; 80053; 83690; 84484; 85025; 93005; 96374; 96375; 96376; 99285; J0360; J1885; J9999

== ENCOUNTER → 2025-04-19 13:42 | Outpatient (BNVA) | payer MEDICARE, SELFPAY | PROVIDERS: PCP Family Medicine; Visit Provider Internal Medicine | DX: I48.91 Unspecified atrial fibrillation (principal); I10 Essential (primary) hypertension; E78.5 Hyperlipidemia, unspecified; K21.9 Gastro-esophageal reflux disease without esophagitis; Z87.891 Personal history of nicotine dependence | CPT/HCPCS: 99214 ==

== ENCOUNTER 2025-04-25 09:10 | Outpatient (CLI) | payer MEDICARE, SELFPAY ==
--- NOTE | 2025-04-25 09:13 | MM_ITS ---
WS: [id number] BILATERAL SCREENING DIGITAL TOMOSYNTHESIS MAMMOGRAM WITH CAD HISTORY: SCREENING COMPARISON: 01/21/2022, 01/05/2021 Bilateral CC and MLO views with tomosynthesis and synthetic mammography submitted. Computer aided detection analyzed. Breast composition: There are scattered areas of fibroglandular density. No suspicious masses, microcalcifications or architectural distortion. Benign calcifications in each breast. No suspicious mass or distortion. MM/MM scr tomosynthesis [id number] IMPRESSION: BI-RADS: 2 - Benign. FOLLOW UP: 1 Year Follow-up
== END 2025-04-25 09:11 | disposition home or self-care (01) ==
LOC: RAD 09:11
PROVIDERS: PCP Family Medicine; Visit Provider Family Medicine
DX: Z12.31 Encounter for screening mammogram for malignant neoplasm of breast (principal); R92.323 Mammographic fibroglandular density, bilateral breasts; R92.1 Mammographic calcification found on diagnostic imaging of breast
CPT/HCPCS: 77063; 77067